=== PATIENT | male | born 1960 | race Caucasian/White ===

== ENCOUNTER → 2017-04-15 11:17 | Outpatient (CLI) | payer BC, MEDICAID, SELFPAY ==
[2017-04-15 16:03] LABS: AST(SGOT) 19 U/L (15-37); Alanine Aminotransfer ALT/SGPT 31 U/L (16-61); Albumin, Serum 3.8 g/dL (3.2-5.0); Alkaline Phosphatase 104 U/L (45-117); Anion Gap 10 (5-15); BUN 9 mg/dL (7-18); BUN/Creat Ratio 10.5 RATIO (10-20); Calcium,Total 9.2 mg/dL (8.5-10.1); Chloride 102 mmol/L (98-107); Cholesterol 169 mg/dL (200); Creatinine, Serum 0.86 mg/dL (0.70-1.30); EST Glomerular Filtration Rate 99 mL/min (>60); Est Glom Filt Rate - Afr Amer 119 mL/min (>60); Globulin 3.7 g/dL (2.2-4.2); Glucose 172 mg/dL (74-106); High Density Lipoprotein 30 mg/dL; Potassium 3.9 mmol/L (3.5-5.1); Protein, Total 7.5 g/dL (6.4-8.2); Sodium Level 136 mmol/L (136-145); Triglycerides 187 mg/dL; Very Low Density Lipoprotein 37 mg/dL (5-40)
[2017-04-15 16:07] LABS: Absolute Lymphocyte Count 2.34 X10^3/ul (0.83-4.51); Absolute Neutrophil Count 4.5 X10^3/uL (2.0-7.7); Basophil# 0.04 X10^3/uL; Basophil% 0.5 % (0-1); Eosinophil# 0.23 X10^3/uL; Hematocrit 40.9 % (40-54); Hemoglobin 13.6 g/dl (13.0-16.5); Lymphocyte # 2.34 X10^3/ul (4.0); Lymphocyte % 30.7 % (19-41); Mean Corp Hgb Conc 33.3 g/gl (32-36); Mean Corpuscular Hgb 31.6 pg (27.0-32.0); Mean Corpuscular Volume 95.1 fL (80-94); Mean Platelet Vol. 10.2 fl (6.2-12.0); Monocyte# 0.46 X10^3/uL; Neutrophil # 4.52 X10^3/uL (2.7-7.7); Neutrophil % 59.4 % (47-70); Platelet Count 223 K/mm3 (150-450); RBC Distribution Width CV 14.7 % (11.6-14.6); White Blood Count 7.6 K/mm3 (4.4-11.0)
[2017-04-15 16:19] LABS: Hemoglobin A1c 8.5 % (4.2-6.3)
[2017-04-15 16:53] LABS: POSITIVE COUNT NO; POSITIVE DIFFERENTIAL NO; POSITIVE MORPHOLOGY NO
[2017-04-15 18:27] LABS: Microalbumin:Creatinine Ratio 37.7 mg/g CRE (<30 mg/g CRE)
== END ==
PROVIDERS: Family Provider Family Medicine; PCP Family Medicine; Visit Provider Family Medicine
DX: E11.40 Type 2 diabetes mellitus with diabetic neuropathy, unspecified (principal); E78.5 Hyperlipidemia, unspecified
CPT/HCPCS: 36415; 80053; 80061; 82043; 82570; 83036; 85025

== ENCOUNTER → 2017-11-26 09:31 | Outpatient (CLI) | payer BC, MEDICAID, SELFPAY ==
[2017-11-26 11:05] LABS: Cholesterol 188 mg/dL (200); High Density Lipoprotein 26 mg/dL; Triglycerides 248 mg/dL; Very Low Density Lipoprotein 50 mg/dL (5-40)
[2017-11-26 12:24] LABS: Microalbumin,Random Urine 10.4 mg/L (NO RANGE EST.); Microalbumin:Creatinine Ratio 11.6 mg/g CRE (<30 mg/g CRE)
[2017-11-26 13:46] LABS: Hemoglobin A1c 7.7 % (4.2-6.3)
== END ==
PROVIDERS: Family Provider Family Medicine; PCP Family Medicine; Visit Provider Family Medicine
DX: E11.40 Type 2 diabetes mellitus with diabetic neuropathy, unspecified (principal); E78.5 Hyperlipidemia, unspecified
CPT/HCPCS: 36415; 80061; 82043; 82570; 83036

== ENCOUNTER → 2018-02-19 08:34 | Outpatient (CLI) | payer BC, MEDICAID, SELFPAY ==
[2018-02-19 12:49] LABS: BUN 11 mg/dL (7-18); Creatinine, Serum 0.94 mg/dL (0.70-1.30); Glucose 172 mg/dL (74-106)
[2018-02-19 12:50] LABS: Anion Gap 12 (5-15); BUN/Creat Ratio 11.7 RATIO (10-20); Calcium,Total 8.6 mg/dL (8.5-10.1); Chloride 100 mmol/L (98-107); Cholesterol 128 mg/dL (200); EST Glomerular Filtration Rate 88 mL/min (>60); Est Glom Filt Rate - Afr Amer 107 mL/min (>60); Hemoglobin A1c 7.9 % (4.2-6.3); High Density Lipoprotein 28 mg/dL; Sodium Level 138 mmol/L (136-145); Triglycerides 325 mg/dL; Very Low Density Lipoprotein 65 mg/dL (5-40)
== END ==
PROVIDERS: Family Provider Family Medicine; PCP Family Medicine; Visit Provider Family Medicine
DX: E11.40 Type 2 diabetes mellitus with diabetic neuropathy, unspecified (principal); E78.5 Hyperlipidemia, unspecified; R80.9 Proteinuria, unspecified; I10 Essential (primary) hypertension
CPT/HCPCS: 36415; 80048; 80061; 83036

== ENCOUNTER → 2018-10-12 | Outpatient (CLI) | payer OTHER, MEDICAID, SELFPAY ==
[2018-10-12 12:54] LABS: Creatinine, Serum 1.09 mg/dL (0.70-1.30); EST Glomerular Filtration Rate 74 mL/min (>60); Est Glom Filt Rate - Afr Amer 90 mL/min (>60)
== END | disposition home or self-care (01) ==
LOC: BFHLAB 08:55
PROVIDERS: Family Provider Family Medicine; PCP Family Medicine; Visit Provider Orthopaedic Surgery Orthopaedic Surgery of the Spine
DX: Z98.890 Other specified postprocedural states (principal)
CPT/HCPCS: 36415; 82565

== ENCOUNTER → 2018-12-01 11:26 | Outpatient (CLI) | payer OTHER, MEDICAID, SELFPAY ==
[2018-12-01 12:35] LABS: Absolute Lymphocyte Count 2.55 X10^3/uL (0.83-4.51); Absolute Neutrophil Count 4.5 X10^3/uL (2.0-7.7); Basophil# 0.04 X10^3/uL; Basophil% 0.5 % (0-1); Eosinophil# 0.19 X10^3/uL; Eosinophils% 2.4 % (0-5); Hematocrit 41.3 % (40-54); Lymphocyte # 2.55 X10^3/ul (4.0); Lymphocyte % 32.7 % (19-41); Mean Corp Hgb Conc 33.9 g/dL (32-36); Mean Corpuscular Hgb 32.2 pg (27.0-32.0); Mean Corpuscular Volume 94.9 fL (80-94); Mean Platelet Vol. 9.8 fl (6.2-12.0); Monocyte# 0.47 X10^3/uL; NRBC Flagged by Analyzer 0 % (0-5); Neutrophil # 4.52 X10^3/uL (2.7-7.7); Platelet Count 207 K/mm3 (150-450); RBC Distribution Width CV 13.6 % (11.6-14.6); RBC Distribution Width SD 47.4 fl (35.1-43.9); Red Blood Count 4.35 M/mm3 (4.6-6.2); White Blood Count 7.8 K/mm3 (4.4-11.0)
[2018-12-01 12:41] LABS: Microalbumin,Random Urine 12.3 mg/L (NO RANGE EST.); Microalbumin:Creatinine Ratio 25.4 mg/g CRE (<30 mg/g CRE)
[2018-12-01 12:55] LABS: Hemoglobin A1c 7.1 % (4.2-6.3)
[2018-12-01 13:00] LABS: ALB/GLOB Ratio 1.1 RATIO (0.9-2.4); AST(SGOT) 22 U/L (15-37); Alanine Aminotransfer ALT/SGPT 27 U/L (16-61); Albumin, Serum 4.1 g/dL (3.2-5.0); Alkaline Phosphatase 87 U/L (45-117); Anion Gap 11 (5-15); BUN 17 mg/dL (7-18); BUN/Creat Ratio 15.6 RATIO (10-20); Calcium,Total 9.6 mg/dL (8.5-10.1); Chloride 103 mmol/L (98-107); Cholesterol 203 mg/dL (200); Creatinine, Serum 1.09 mg/dL (0.70-1.30); EST Glomerular Filtration Rate 74 mL/min (>60); Est Glom Filt Rate - Afr Amer 90 mL/min (>60); Globulin 3.7 g/dL (2.2-4.2); Glucose 152 mg/dL (74-106); High Density Lipoprotein 30 mg/dL; PSA,Total - Annual Screen 0.82 ng/mL (0.00-4.00); Potassium 4.2 mmol/L (3.5-5.1); Protein, Total 7.8 g/dL (6.4-8.2); Sodium Level 138 mmol/L (136-145); Triglycerides 189 mg/dL; Very Low Density Lipoprotein 38 mg/dL (5-40)
== END ==
PROVIDERS: Family Provider Family Medicine; PCP Family Medicine; Visit Provider Family Medicine
DX: E11.40 Type 2 diabetes mellitus with diabetic neuropathy, unspecified (principal); Z12.5 Encounter for screening for malignant neoplasm of prostate
CPT/HCPCS: 36415; 80053; 80061; 82043; 82570; 83036; 84153; 85025; G0103

== ENCOUNTER 2020-05-16 14:43 | Outpatient (RCR) | payer MEDICAID, SELFPAY ==
[2020-05-16] MEDS: COVID-19 VACC, MRNA(PFIZER)/PF 30 MCG/0.3 ML SYRINGE IM (12:53)
[2020-06-06] MEDS: COVID-19 VACC, MRNA(PFIZER)/PF 30 MCG/0.3 ML SYRINGE IM (12:43)
== END 2020-08-08 23:59 ==
LOC: IMMUN 14:43
PROVIDERS: PCP Family Medicine; Visit Provider Family Medicine
DX: Z23 Encounter for immunization (principal)
CPT/HCPCS: 0001A; 0002A; 91300

== ENCOUNTER → 2020-08-24 08:34 | Outpatient (CLI) | payer BC, MEDICAID, SELFPAY ==
--- NOTE | 2020-08-24 08:36 | CT_ITS ---
STUDY: CT CHEST WITHOUT CONTRAST- LOW DOSE SCREENING PROTOCOL REASON FOR EXAM: Male, 59 years old. Current smoker. 40 pack per year history. No current symptoms of lung cancer or pulmonary infection. Shared decision-making with referring PCP documented in patient''s record. RADIATION DOSAGE (If Supplied By Facility): CTDIvol = ( 3.02 ) mGy, DLP = ( 98.55 ) mGycm TECHNIQUE: Low dose screening CT examination performed from the base of the neck to the upper abdomen. Sagittal and coronal reformatted images performed. Sagittal and coronal MIP images provided. The measurements provided are average, rounded measurements per ACR guidelines. COMPARISON: None. FINDINGS: Mild emphysematous changes. No noncalcified nodule or mass. There is no demonstrated pleural abnormality. Normal heart and pericardium. There are calcifications of the coronary arteries. Normal mediastinum. Normal hilar regions. Normal unenhanced pulmonary arteries. Normal aorta arch and descending thoracic aorta. Healed fracture the mid sternum. There is no demonstrated abnormality of the visualized upper abdomen. CT/Low Dose CT Lung Screening IMPRESSION: 1. No significant indeterminate incidental findings requiring additional imaging. 2. Incidental findings include mild emphysema. ASSESSMENT CATEGORY: LungRADS 1 - Negative. Continue annual screening with LDCT in 12 months, per established ACR guidelines. Electronically Signed: Geoff Borges MD at 14:46 EDT Tel , Service support ,
== END ==
PROVIDERS: PCP Family Medicine; Referring Provider Family Medicine; Visit Provider Family Medicine
DX: Z12.2 Encounter for screening for malignant neoplasm of respiratory organs (principal); Z72.0 Tobacco use
CPT/HCPCS: 71271

== ENCOUNTER 2021-02-22 11:00 | Outpatient (RCR) | payer BC, MEDICAID, SELFPAY ==
--- NOTE | 2021-01-16 13:30 | HP.PTEVAL_ITS ---
Patient's Visit Information NATALIE HARRISON is a 60 year old M referred to Physical Therapy by Dr. Moe Ferguson MD with a diagnosis of LUMBAR BACK PAIN WITH RADICULOPATHY,S/P LAMINECTOMY T12 -S1 WITH FUSION. Date of Evaluation: 01/16/21 Physical Therapist: Moe Ramos, PT, Cert MDT, OCS - Visit Plan Frequency: 2x /Week Duration: 4 Weeks Plan: PT INTERVETIONS DLS ,POSTURAL EX'S,LE FLEXABLITY AND STREGTHENING WITH HEP - Subjective This 60 y/o male presents to physical therapy with lumbar radiculopathy . Patient has multiple comorbities to include multiple lumbar surgeries with 11 back surgery's. Most recently ,patient had s/p laminectomy T12-S1 with spinal fusion L1-S1 on Nov 292020 at [facility] . Recommend PT but needs PT before MRI. Location right lumbar to to glut to anterior to foot. Patient has had epidural injections in past. Patient has prior PT after surgery. MEDS: oxycodone. C/O paresthesia/tingling ,right leg . Bowel/bladder- .Coughing/sneezing+ . Patient aggravating factors bending, lifting, sitting, walking and standing. This affects ADLS Alleviating factors rest. Patient condition affects QOL and function. SOCIAL: . VOCATION: - Pain Bilateral Back Pain Intensity (Out of 10): 10 Pain Intensity Range: 10 Right Lower Extremity Pain Intensity (Out of 10): 10 Pain Intensity Range: 10 - Objective POSTURE: mild forward posture. GAIT: reciprocal pattern antalgic gait with decrease stance time RLE. FLEXABILITY: hamstrings mod tight. SYMMYTRIES: align. PALAPTION: tender right SI. MMT: quads/hams 4-/5,hip flexion 4-/5,ankle 4/5. LUMBAR ROM: flexion mod loss, extension mod/severe loss pain , side glides mod - Special Tests L/S Slump test left side: Positive L/S Slump test right side: Positive L/S Left Straight Leg Raise: Negative L/S Right Straight Leg Raise: Negative Lumbar Standing: Flexion - Mechanical Response: No effect Lumbar Standing: Flexion - Symptoms During Testing: Increases Lumbar Standing: Flexion - Symptoms After Testing: No worse Lumbar Standing: Extension - Mechanical Response: No effect Lumbar Standing: Extension - Symptoms During Testing: Increases Lumbar Standing: Extension - Symptoms After Testing: Worse Lumbar Standing: Right Side Glides - Mechanical Response: No effect Lumbar Standing: Right Side [place] - Symptoms During Testing: Increases Lumbar Standing: Right Side [place] - Symptoms After Testing: Worse Lumbar Standing: Left Side [place] - Mechanical Response: No effect Lumbar Standing: Left Side [place] - Symptoms During Testing: No effect Lumbar Standing: Left Side [place] - Symptoms After Testing: No effect - Balance/Special Test Scores Oswestry Low Back Score: 35 - Goals Goal 1:: Patient to be I with HEP Goal Time Frame: 4-6 Weeks Goal 2:: Patient to improve posture for ADLS' Goal Time Frame: 4-6 Weeks Goal 3:: Patient to demonstrate 50% improvement with decrease back and leg pain Goal Time Frame: 4-6 Weeks Goal 4:: Patient to improve lumbar ROM for function of recovery Goal Time Frame: 4-6 Weeks Goal 5:: Patient to improve back owestry score by 5 points Goal Time Frame: 4-6 Weeks - Rehabilitation Potential Physical Therapy Diagnosis: This patient has multiple comorbities along 11 surgery most recent lumbar fusion L1-S1 with pain ,poor lumbar ROM ,weakness right leg thus will benefit from skilled PT Rehabilitation Potential: Good - Anticipated Interventions Patient/Client Instruction: Educate patient on: Condition, Plan of Care For the Purpose of:: To decrease pain, To increase ROM, To improve ability to perform ADL's, To improve ability of physical actions for home/community/work/leisure, To improve health of tissue, To decrease soft tissue restriction, To increase flexibility/ROM, To reduce risk of recurrence Therapeutic Exercise to Include: Strength training, Balance training, Body mechanics, Postural training, Gait and locomotor training, Dynamic Lumbar Stabilization Comment: BLE For the Purpose of:: To increase ROM, To improve muscle performance and motor function, To increase tolerance to activity/condition/position, To improve ability of physical actions for home/community/work/leisure, To improve health of tissue, To decrease soft tissue restriction, To increase flexibility/ROM, To improve balance, To reduce risk of recurrence Thank you for the opportunity to evaluate your patient. For Medicare and Medicare HMO plans, please review the plan of care and approve it. It will need to be FAXED BACK to us at [phone] for Medicare purposes. For Medicare only, by signing this I certify the plan of care. Please let me know if there are questions or concerns regarding this plan of care. Physician Signature: Date:__
--- NOTE | 2021-04-27 07:56 | HP.PT.NRP ---
NATALIE HARRISON was seen in my office for initial evaluation on 01/16/21. The following Plan of Care was established for this patient: Initial Frequency: 2x /Week Initial Duration: 4 Weeks Patient/Client Instruction: Educate patient on: Condition, Plan of Care For the Purpose of:: To decrease pain, To increase ROM, To improve ability to perform ADL's, To improve ability of physical actions for home/community/work/leisure, To improve health of tissue, To decrease soft tissue restriction, To increase flexibility/ROM, To reduce risk of recurrence Therapeutic Exercise to Include: Strength training, Balance training, Body mechanics, Postural training, Gait and locomotor training, Dynamic Lumbar Stabilization For the Purpose of:: To increase ROM, To improve muscle performance and motor function, To increase tolerance to activity/condition/position, To improve ability of physical actions for home/community/work/leisure, To improve health of tissue, To decrease soft tissue restriction, To increase flexibility/ROM, To improve balance, To reduce risk of recurrence This patient was last seen in our office . Pertinent comments regarding their Physical therapy will appear below: Patient was seen for PT for lumbar laminectomy with lumbar radiculopathy focus on postural ex's ,DLS . Patient is d/c to RTD At this point I will be discontinuing this patient from physical therapy. I would be happy to see this patient again in the future if found appropriate by the physician. Thank you! Moe Ramos, PT, Cert MDT, OCS Balance/Gait/Functional tests - Balance/Special Test Scores Oswestry Low Back Score: 35
== END 2021-02-22 19:00 | disposition home or self-care (01) ==
LOC: PT 11:00
PROVIDERS: PCP Family Medicine; Referring Provider Orthopaedic Surgery Orthopaedic Surgery of the Spine; Visit Provider Orthopaedic Surgery Orthopaedic Surgery of the Spine
DX: M54.50 Low back pain, unspecified (principal); M54.16 Radiculopathy, lumbar region; Z98.1 Arthrodesis status
CPT/HCPCS: 97110; 97162

== ENCOUNTER 2021-09-25 16:58 | Outpatient (CLI) | payer OTHER, MEDICAID, SELFPAY | END 2021-09-25 23:59 | disposition home or self-care (01) | PROVIDERS: PCP Family Medicine; Visit Provider Family Medicine | DX: U07.1 COVID-19 (principal) | CPT/HCPCS: 87635; U0003; U0005 ==

== ENCOUNTER → 2022-01-07 | Outpatient (CLI) | payer OTHER, MEDICAID, SELFPAY ==
[2022-01-07 12:23] LABS: AST(SGOT) 13 U/L (15-37); Alanine Aminotransfer ALT/SGPT 22 U/L (16-61); Albumin, Serum 3.6 g/dL (3.2-5.0); Alkaline Phosphatase 88 U/L (45-117); Anion Gap 10 (5-15); BUN 11 mg/dL (7-18); BUN/Creat Ratio 9.5 RATIO (10-20); Calcium,Total 9.3 mg/dL (8.5-10.1); Chloride 102 mmol/L (98-107); Cholesterol 179 mg/dL (200); Creatinine, Serum 1.16 mg/dL (0.70-1.30); EST Glomerular Filtration Rate 69 mL/min (>60); Est Glom Filt Rate - Afr Amer 83 mL/min (>60); Globulin 3.6 g/dL (2.2-4.2); Glucose 255 mg/dL (74-106); High Density Lipoprotein 30 mg/dL; Potassium 4.5 mmol/L (3.5-5.1); Protein, Total 7.2 g/dL (6.4-8.2); Sodium Level 135 mmol/L (136-145); Triglycerides 208 mg/dL; Very Low Density Lipoprotein 42 mg/dL (5-40)
[2022-01-07 12:40] LABS: Microalbumin,Random Urine 35.7 mg/L (NO RANGE EST.); Microalbumin:Creatinine Ratio 93.9 mg/g CRE (<30 mg/g CRE)
== END | disposition home or self-care (01) ==
LOC: BFHLAB 09:30
PROVIDERS: PCP Family Medicine; Visit Provider Family Medicine
DX: E11.40 Type 2 diabetes mellitus with diabetic neuropathy, unspecified (principal)
CPT/HCPCS: 36415; 80053; 80061; 82043; 82570

== ENCOUNTER → 2022-07-08 | Outpatient (CLI) | payer OTHER, MEDICAID, SELFPAY ==
[2022-07-08 18:02] LABS: Absolute Lymphocyte Count 2.13 X10^3/uL (0.83-4.51); Absolute Neutrophil Count 5.8 X10^3/uL (2.0-7.7); Basophil# 0.05 X10^3/uL; Basophil% 0.6 % (0-1); Eosinophil# 0.13 X10^3/uL; Eosinophils% 1.5 % (0-5); Hematocrit 43.4 % (40-54); Hemoglobin 14.4 g/dL (13.0-16.5); Lymphocyte # 2.13 X10^3/ul (0.83-4.51); Lymphocyte % 24.4 % (19-41); Mean Corp Hgb Conc 33.2 g/dL (32-36); Mean Corpuscular Hgb 31.4 pg (27.0-32.0); Mean Corpuscular Volume 94.6 fL (80-94); Monocyte# 0.55 X10^3/uL; Monocyte% 6.3 % (0-10); NRBC Flagged by Analyzer 0 % (0-5); Neutrophil # 5.82 X10^3/uL (2.7-7.7); Neutrophil % 66.6 % (47-70); Platelet Count 263 K/mm3 (150-450); RBC Distribution Width SD 48.4 fl (35.1-43.9); Red Blood Count 4.59 M/mm3 (4.6-6.2); White Blood Count 8.7 K/mm3 (4.4-11.0)
[2022-07-08 18:23] LABS: Vitamin B12 174 pg/mL (211-911); Vitamin D,25 Hydroxy 19.6 ng/mL
[2022-07-08 19:00] LABS: AST(SGOT) 20 U/L (15-37); Alanine Aminotransfer ALT/SGPT 27 U/L (16-61); Albumin, Serum 3.9 g/dL (3.2-5.0); Alkaline Phosphatase 92 U/L (45-117); Anion Gap 11 (5-15); BUN 17 mg/dL (7-18); BUN/Creat Ratio 16.3 RATIO (10-20); Calcium,Total 9.7 mg/dL (8.5-10.1); Chloride 104 mmol/L (98-107); Creatinine, Serum 1.04 mg/dL (0.70-1.30); EST Glomerular Filtration Rate 78 mL/min (>60); Est Glom Filt Rate - Afr Amer 94 mL/min (>60); Glucose 186 mg/dL (74-106); Potassium 4.2 mmol/L (3.5-5.1); Protein, Total 7.9 g/dL (6.4-8.2); Sodium Level 138 mmol/L (136-145); Thyroid Stim Hormone (TSH) 1.03 uIU/mL (0.358-3.74)
== END | disposition home or self-care (01) ==
LOC: BFHLAB 14:53
PROVIDERS: PCP Family Medicine; Referring Provider Family Medicine; Visit Provider Family Medicine
DX: R53.83 Other fatigue (principal); I10 Essential (primary) hypertension
CPT/HCPCS: 36415; 80053; 82306; 82607; 84443; 85025

== ENCOUNTER → 2022-10-07 | Outpatient (CLI) | payer OTHER, MEDICAID, SELFPAY ==
[2022-10-07 12:50] LABS: Vitamin B12 207 pg/mL (211-911); Vitamin D,25 Hydroxy 29.7 ng/mL
[2022-10-07 13:01] LABS: Cholesterol 136 mg/dL (200); High Density Lipoprotein 34 mg/dL; PSA,Total - Annual Screen 1.08 ng/mL (0.00-4.00); Triglycerides 126 mg/dL; Very Low Density Lipoprotein 25 mg/dL (5-40)
== END | disposition home or self-care (01) ==
LOC: BFHLAB 09:52
PROVIDERS: PCP Family Medicine; Referring Provider Family Medicine; Visit Provider Family Medicine
DX: E78.5 Hyperlipidemia, unspecified (principal); E53.8 Deficiency of other specified B group vitamins; E55.9 Vitamin D deficiency, unspecified; Z12.5 Encounter for screening for malignant neoplasm of prostate
CPT/HCPCS: 36415; 80061; 82306; 82607; 84153; G0103

== ENCOUNTER → 2023-03-19 | Outpatient (CLI) | payer OTHER, MEDICAID, SELFPAY ==
--- OUTSIDE RECORDS SUMMARY | 2023-03-19 12:41 | XMS RPT_ITS | CCD ---
Demographics Address [address] [place] [address] Preferred Language en Marital Status Alevism Affiliation Unknown Race White Ethnic Group Not or Lati no Author Name Unknown Address [address] [place] [address] Organization [facility] Care Team Providers Care Partner Cco Name Role Phone Wayne Poe Unavailable Unavailable PROVIDER, UNKNOWN Unavailable Unavailable No, PCP Unavailable Unavailable Eligio Glez Primary Care Provider ELIGIO GLEZ Primary Care Unavailable JERRY FERGUSON Attending Unavailable JERRY FERGUSON Admitting Unavailable Eligio Glez DO Primary Care Provider Eligio Glez Primary Care Provider AMARIS REYES, DR DEL VALLE A Primary Care Physician Eligio Glez DO Primary Care Provider KIMBERLY DOWNS Attending Coty vailable AMARIS DO, DR DEL VALLE A Primary Care Unavailab zoltan HOFF, KIMBERLY Huston Attending Coty vailable AMARISCATRACHITA REYES, DR DEL VALLE A Primary Care Unavailab KIMBERLY Ramey Attending Coty vailable AMARIS DO, DR DEL VALLE A Primary Care Unavailab zoltan HOFF, KIMBERLY Huston Attending Coty vailable AMARIS , DR DEL VALLE A Primary Care Unavailab KIMBERLY Ramey Attending Coty vailable AMARIS DO, DR DEL VALLE A Primary Care Unavailab zoltan JAMES MD., EVELYN [place] Attending Unavailable AMARIS DO, DR DEL VALLE A Primary Care Unavailab zoltan JAMES MD., EEVLYN [place] Attending Unavailable AMARISCATRACHITA REYES, DR DEL VALLE A Primary Care Unavailab zoltan HOFF, KIMBERLY Huston Attending Coty vailable AMARIS DO, DR ELIGIO A Primary Care Unavailab zoltan MANE PIECE HAND-FLARE MAN, KIMBERLY Huston Attending Coty vailable AMARIS REEYS, DR DEL VALLE A Primary Care Unavailab zoltan Glez, Eligio A Primary Care Provider Amaris, Eligio A Primary Care Provider FAREED HAGER Referring Unavailable HARTJESUS SANCHEZ Attending Unavailable AMARIS, ELIGIO Primary Care Unavailable KARLA ATKINS Attending Unavailable AMARIS, ELIGIO Primary Care Unavailable HARTZJENAE, JESUS Admitting Unavailable JEMMA, APURVA Consulting Unavailable FIDEL, JESUS Attending Unavailable AMARIS, ELIGIO Primary Care Unavailable FAREED HAGER Attending Unavailable FAREED HAGER Referring Unavailable AMARIS, ELIGIO Primary Care Unavailable AMARIS, ELIGIO Primary Care Unavailable AMARIS, ELIGIO Attending Unavailable AMARIS, ELIGIO Referring Unavailable AMARIS, ELIGIO Primary Care Unavailable AMARIS, ELIGIO Attending Unavailable AMARIS, ELIGIO Referring Unavailable AMARIS, ELIGIO Primary Care Unavailable HARTZJENAE, JESUS Admitting Unavailable HARTZFELD, JESUS Attending Unavailable Allergies Allergy Classification Reported Allergen(s) Allergy Type Date of Onset Reaction(s) Facility (19 sources) Acetaminophen / HYDROcodone Drug Allergy 05-27-19 07 Other (See Comments), Intolerance, Other [place] (19 sources) atorvastatin Drug Allergy 10-27-19 05 Other (See Comments), Intolerance, Other [place] (5 sources) Latex Propensity to adverse reactions to drug 07-10-19 13 Rash [place] (19 sources) Naproxen Drug Allergy 01-31-20 09 Intolerance [place] (20 sources) Pravastatin; Translations: [pravastatin] Drug Allergy 06-30-19 11 Other (See Comments), Mental Status Change, Nausea (finding), Nausea Only [place] (5 sources) Sulindac Drug Allergy 03-02-20 08 Intolerance [place] (5 sources) Acetaminophen / HYDROcodone; Translations: [acetaminophen-hy drocodone] Drug Allergy Headache (finding) [facility] (5 sources) atorvastatin; Translations: [atorvastatin] Drug Allergy Pain in bilateral legs (finding) [facility] (5 sources) dulaglutide; Translations: [dulaglutide] Drug Allergy Nausea (finding) [facility] (19 sources) pioglitazone; Translations: [pioglitazone] Drug Allergy 11-14-19 Constipation (disorder), Edema (finding), Swelling [facility] (19 sources) SITagliptin; Translations: [sitagliptin] Drug Allergy 11-14-19 Chest pain (finding) [facility] (18 sources) Morphine; Translations: [morphine] Drug Allergy 11-14-19 Headache (finding), Headache [facility] (14 sources) dulaglutide Drug Allergy 11-14-19 Nausea Only [facility] [employer] (14 sources) Latex Propensity to adverse reactions 07-10-19 Rash [facility] (14 sources) Sulindac Propensity to adverse reactions 03-02-20 08 Other [facility] Medications Current Medications Medication Drug Class(es) Dates Sig (Normalized) Sig (Original) acetaminophen 325 mg / oxyCODONE hydrochloride 5 mg oral tablet (13 sources) Opioid Agonist Start: 11-30-2022 End: 12-13-2022 take 1 tablet by mouth every six hours as needed for pain oxyCODONE-acetami nophen (Percocet) 5-325 MG tablet Indications: Chronic pain disorder Take 1 tablet by mouth every 6 hours as needed for moderate pain (4-6) for up to 7 days. 28 tablet 0 12/06/2022 12/13/2022 Active Completed/Discontinued Medications Medication Drug Class(es) Dates Sig (Normalized) Sig (Original) acetaminophen 500 mg oral tablet (1 source) Start: 11-29-2022 End: 11-29-2022 acetaminophen (Tylenol) tablet 1,000 mg acetaminophen 325 mg / butalbital 50 mg / caffeine 40 mg oral tablet (2 sources) Barbiturate, Central Nervous System Stimulant, Methylxanthine Start: 07-13-2015 take 1 tablet by mouth every twelve hours as needed acetaminophen 325 mg-caffeine 40 mg-butalbital 50 mg (FIORICET) per tablet Take 1 tablet by mouth twice daily as needed for Pain (headache). 60 tablet 2 07/13/2015 Active Problems Active Problems Problem Classification Problem Date Documented Date Episodic/Chronic Asthma (19 sources) Asthma; Translations: [Unspecified asthma, uncomplicated] Onset: 03-03-2016 10-01-2021 Chronic Chronic obstructive pulmonary disease and bronchiectasis (20 sources) Mild chronic obstructive pulmonary disease; Translations: [Chronic obstructive pulmonary disease, unspecified] Onset: 12-15-2009 12-15-2009 Chronic Complications of surgical procedures or medical care (14 sources) Complication of surgical procedure; Translations: [Unspecified complication of procedure, initial encounter] Onset: 11-13-2022 11-13-2022 Episodic Diabetes mellitus with complications (20 sources) Type 2 diabetes mellitus; Translations: [Type 2 diabetes mellitus with diabetic neuropathy, unspecified] Onset: 01-01-2016 01-01-2016 Chronic Disorders of lipid metabolism (20 sources) Mixed hyperlipidemia; Translations: [Mixed hyperlipidemia] Onset: 12-29-2014 12-29-2014 Chronic Esophageal disorders (20 sources) Gastroesophageal reflux disease; Translations: [Gastro-esophageal reflux disease without esophagitis] Onset: 03-03-2016 08-28-2005 Chronic Essential hypertension (19 sources) Hypertensive disorder; Translations: [Essential (primary) hypertension] Onset: 03-03-2017 10-01-2021 Chronic Genitourinary symptoms and ill-defined conditions (19 sources) Microalbuminuria; Translations: [Proteinuria, unspecified] Onset: 03-03-2017 10-01-2021 Episodic Gout and other crystal arthropathies (19 sources) Gout; Translations: [Gout, unspecified] Onset: 03-03-2020 10-01-2021 Chronic Headache; including migraine (18 sources) Migraine without aura, not refractory ; Translations: [Chronic migraine without aura, not intractable, without status migrainosus] Onset: 07-30-2015 07-30-2015 Chronic Other acquired deformities (1 source) Other forms of scoliosis, thoracolumbar region; Translations: [OTH FORMS SCOLIOSIS THORACOLUMBAR] Onset: 04-10-2021 Chronic Other acquired deformities (1 source) Spondylolisthesis, lumbar region; Translations: [SPONDYLOLISTHESIS LUMBAR REGION] Onset: 04-10-2021 Episodic Other connective tissue disease (1 source) Arthrodesis status; Translations: [ARTHRODESIS STATUS] Onset: 04-10-2021 Episodic Other ear and sense organ disorders (5 sources) Hearing loss of left ear Onset: 03-03-2016 10-01-2021 Chronic Other nervous system disorders (20 sources) Chronic pain syndrome; Translations: [Chronic pain syndrome] Onset: 11-29-2022 11-13-2022 Chronic Other nervous system disorders (1 source) Chronic pain syndrome; Translations: [Chronic pain syndrome] Onset: 11-29-2022 Chronic Other non-traumatic joint disorders (1 source) Osteophyte, vertebrae; Translations: [OSTEOPHYTE VERTEBRAE] Onset: 04-10-2021 Chronic Other screening for suspected conditions (not mental disorders or infectious disease) (5 sources) Patient encounter status; Translations: [Encounter for screening for malignant neoplasm of respiratory organs] Onset: 11-21-2022 11-21-2022 Episodic Residual codes; unclassified (20 sources) Obstructive sleep apnea syndrome; Translations: [Obstructive sleep apnea (adult) (pediatric)] Onset: 03-03-2016 02-26-2021 Chronic Residual codes; unclassified (4 sources) Tobacco use and exposure - finding; Translations: [Tobacco use] Onset: 11-21-2022 11-21-2022 Episodic Residual codes; unclassified (1 source) Tobacco use; Translations: [Tobacco use] Onset: 11-21-2022 Episodic Spondylosis; intervertebral disc disorders; other back problems (20 sources) Other intervertebral disc displacement, thoracolumbar region; Translations: [Spondylosis without myelopathy or radiculopathy, lumbar region] Onset: 03-03-2018 11-06-2021 Chronic Spondylosis; intervertebral disc disorders; other back problems (20 sources) Radiculopathy, lumbar region; Translations: [Spinal stenosis, thoracolumbar region] Onset: 12-10-2015 05-06-2016 Episodic Unclassified (2 sources) Post-op; Translations: [Post-op] Onset: 12-11-2022 Unclassified (2 sources) New Patient; Translations: [New Patient] Onset: 11-13-2022 Past or Other Problems Problem Classification Problem Date Documented Date Episodic/Chronic Headache; including migraine (5 sources) Chronic headache disorder Onset: 03-03-2019 10-01-2021 Episodic Mycoses (5 sources) Onychomycosis Onset: 03-03-2017 10-01-2021 Episodic Other inflammatory condition of skin (7 sources) Intertrigo; Translations: [Erythema intertrigo] Onset: 07-30-2015 07-30-2015 Episodic Other nervous system disorders (5 sources) Post-surgery back pain Onset: 03-03-2018 10-01-2021 Episodic Other non-traumatic joint disorders (3 sources) Pain in right hip joint; Translations: [Pain in right hip] Onset: 07-30-2022 Episodic Other non-traumatic joint disorders (1 source) Pain in right hip; Translations: [Pain in right hip] Onset: 07-30-2022 Episodic Other skin disorders (5 sources) Folliculitis Onset: 03-03-2017 10-01-2021 Episodic Residual codes; unclassified (20 sources) Insomnia; Translations: [Insomnia, unspecified] Onset: 03-03-2016 05-27-2016 Episodic Residual codes; unclassified (5 sources) Chronic back pain Onset: 03-03-2018 10-01-2021 Episodic Viral infection (2 sources) Verruca vulgaris; Translations: [Viral wart, unspecified] Onset: 05-27-2008 05-27-2008 Episodic Results Test Name Value Interpretation Reference Range Facil ity Vital Signs Date Time Vital Sign Value Performing Clinician Faci lity 12-11-2022 10:40-0400 Body height 172.7 cm Karla Atkins [employer] Work Phone: [employer] 12-11-2022 10:40-0400 Body mass index (BMI) [Ratio] 26 kg/m2 Karla Atkins APRN [employer] Work Phone: [employer] 12-11-2022 10:40-0400 Body temperature 97.81 [degF] Karla Atkins PIECE HAND [employer] Work Phone: [employer] 12-11-2022 10:40-0400 Body weight 77.56 kg Karla Atkins APRN [employer] Work Phone: [employer] 12-11-2022 10:40-0400 Diastolic blood pressure 57 mm[Hg] Karla Atkins PIECE HAND [employer] Work Phone: [employer] 12-11-2022 10:40-0400 Heart rate 60 /min Karla Atkins [employer] HAND [employer] Work Phone: [employer] 12-11-2022 10:40-0400 Systolic blood pressure 118 mm[Hg] Karla Krausvianney PIECE HAND - FLARE MAN Work Phone: [facility] [employer] 11-30-2022 07:57-0400 Body temperature 98.2 [degF] Jesus Felder MD Work Phone: [facility] [employer] Encounters Encounter Date Encounter Type Care Provider Facility Start: 12-11-2022 End: 12-11-2022 ambulatory KARLA ATKINS [facility] Start: 12-11-2022 End: 12-11-2022 Postop follow up visit related to original px Karla Arguetabrandin [employer] Work Phone: [facility] Procedures Date Procedure Procedure Detail Performing Clinician Start: 11-30-2022 Glucose quantitative blood xcpt reagent strip Jesus Felder MD Work Phone: Start: 11-30-2022 Basic metabolic pane l calcium total Karla Huston Elizabeth [employer] Work Phone: Start: 11-29-2022 Radiologic exam abdo men 1 view Cleopatra Baig [employer] - [employer] Work Phone: Start: 11-29-2022 Glucose quantitative blood xcpt reagent strip Jesus Felder MD Work Phone: Start: 11-29-2022 FL GUIDANCE OR USE O NLY - NON-RESULTABLE Jesus Felder MD Work Phone: Start: 11-29-2022 Glucose quantitative blood xcpt reagent strip Jesus Felder MD Work Phone: Start: 06-01-2021 Revision decompressi on of thoracic spine EVELYN JAMES MD Plan of Treatment Date Care Activity Detail Author Start: 05-16-2025 PROSTATE CANCER SCREENING DISCUSSION PROSTATE CANCER SCREENING DISCUSSION [facility] Start: 03-31-2025 DTaP/Tdap/Td vaccine (3 - Td or Tdap) DTaP/Tdap/Td vaccine (3 - Td or Tdap) [facility] Start: 03-31-2025 DTaP/Tdap/Td vaccine (3 - Td) DTaP/Tdap/Td vaccine (3 - Td) [place] Start: 03-31-2025 DTaP/Tdap/Td Vaccines (3 - Td or Tdap) DTaP/Tdap/Td Vaccines (3 - Td or Tdap) [facility] Start: 03-31-2025 Urine microalbumin profile DTAP,TDAP,TD (3 - Td or Tdap) [facility] Start: 11-26-2023 Hemoglobin A1c measurement Diabetes: Hemoglobin A1C [facility] Start: 11-22-2023 Screening for malignant neoplasm of lung Lung Cancer Screening [facility] Start: 2022 RSV Immunization aged 60 or older (1 - 1-dose 60+ series) RSV Immunization aged 60 or older (1 - 1-dose 60+ series) [facility] Start: 12-11-2022 End: 12-11-2022 Patient encounter procedure 12/11/2022 10:30 AM EDT Office Visit [address] [id number] Karla Atkins, PIECE HAND - FLARE MAN [address] [place] [address] [facility] Start: 11-29-2022 End: 11-29-2022 Admission to same day surgery center 11/29/2022 10:30 AM EDT - 11/29/2022 12:30 PM EDT Surgery [facility] [address] [facility] [place] [address] Jesus Felder MD [address] [place] [address] SPINAL CORD STIMULATOR PLACEMENT [34022 (CPT )] [facility] Immunizations Immunization Date Immunization Notes Care Provider Fa cility 01-07-2022 influenza, injectabl e, quadrivalent, preservative free Jesus Felder MD Work Phone: [facility] 01-07-2022 influenza virus vacc ine, unspecified formulation Jesus Felder MD Work Phone: [facility] 06-06-2020 Pfizer SARS-CoV-2 Vaccination Fareed Hager MD Work Phone: [facility] 05-16-2020 Pfizer SARS-CoV-2 Vaccination Fareed Hager MD Work Phone: [facility] 11-08-2016 influenza, injectabl e, quadrivalent, contains preservative Fareed Lindsey Jr., MD Work Phone: [facility] 01-01-2016 influenza, injectabl e, quadrivalent, contains preservative Fareed Lindsey Jr., MD Work Phone: [facility] 03-31-2015 tetanus and diphther ia toxoids, adsorbed, preservative free, for adult use (5 Lf of tetanus toxoid and 2 Lf of diphtheria toxoid) Fareed Lindsey Jr., MD Work Phone: [facility] 12-29-2014 influenza, injectabl e, quadrivalent, contains preservative Fareed Lindsey Jr., MD Work Phone: [facility] 12-29-2014 influenza, injectabl e, quadrivalent, preservative free Jesus Felder MD Work Phone: [facility] 12-21-2013 influenza, seasonal, injectable Fareed Lindsey Jr., MD Work Phone: [facility] 04-05-2013 influenza virus vacc ine, unspecified formulation Fareed Lindsey Jr., MD Work Phone: [facility] 01-03-2012 influenza virus vacc ine, unspecified formulation Fareed Lindsey Jr., MD Work Phone: [facility] 01-10-2011 influenza virus vacc ine, unspecified formulation Fareed Lindsey Jr., MD Work Phone: [facility] 12-14-2009 influenza virus vacc ine, unspecified formulation Fareed Lindsey Jr., MD Work Phone: [facility] 12-01-2008 influenza virus vacc ine, unspecified formulation Fareed Lindsey Jr., MD Work Phone: [facility] 03-02-2008 influenza virus vacc ine, unspecified formulation Fareed Lindsey Jr., MD Work Phone: [facility] Work Phone: 01-26-2007 influenza virus vacc ine, unspecified formulation Fareed Lindsey Jr., MD Work Phone: [facility] Work Phone: 04-06-2005 tetanus toxoid, redu gabriel diphtheria toxoid, and acellular pertussis vaccine, adsorbed Fareed Lindsey Jr., MD Work Phone: [facility] Work Phone: 01-21-2005 influenza virus vacc ine, unspecified formulation Fareed Lindsey Jr., MD Work Phone: [facility] 01-22-1999 pneumococcal polysaccharide vaccine, 23 valent Fareed Lindsey Jr., MD Work Phone: [facility] Work Phone: Payers Date Payer Category Payer Unknown 2021 Unknown MMO MMO [employer] [id number] 2021-Present [phone] [address] [place] [address] PPO [id number] 2018 Medicaid [employer] [employer]ICA[employer] [id number] 2018-Present [phone] [address] [place] [address] Medicaid [id number] 2018 Medicaid [id number] 2018 Medicare [employer] MEDIC[employer] MEDICARE [id number] 2018-Present [address] [place] [address] Medicare HMO [id number] 2018 Unknown [facility] xxxxxxxxxxxx 2018-Present [phone] [address] [place] [address] xxxxxxxxxxxx [id number] 2018 Unknown [facility] xxxxxxxxxxx 2018-Present [phone] [address] [place] [address] xxxxxxxxxxx [id number] 1960 Unknown [id number] 1960 Unknown [id number] 1960 Unknown [id number] 1960 Unknown [id number] 1960 Unknown [id number] 1960 Unknown [id number] 1960 Unknown [id number] 1960 Unknown [id number] 1960 Unknown [id number] 1960 Unknown [id number] 1957 Medicaid [id number] 1957 Unknown [id number] Social History Date Type Detail Facility Start: 09-24-2017 End: 11-25-2022 Tobacco smoking status NHIS Current every day smoker [facility] History of tobacco use Cigarette Smoker [place] Start: 09-24-2017 End: 11-29-2022 Cigarettes smoked current (pack per day) - Reported [facility] Start: 09-24-2017 End: 12-11-2022 Alcohol intake Current drinker of alcohol (finding) [place] Start: 09-24-2017 Alcohol Comment biannually Beatris Fuller [place], [place] Start: 1960 Sex Assigned At Not on file [place], [place] Start: 12-29-2014 End: 11-25-2022 Tobacco use and exposure Smokeless tobacco non-user [facility] Start: 03-14-2021 Alcohol intake Current non-dr countersinker of alcohol (finding) [facility] Start: 11-08-2016 Tobacco Comment 1 pack per week [facility] Start: 10-16-2021 Tobacco smoking status Heavy t obacco smoker (finding) [facility] Sex Assigned At Sex [facility] Start: 07-20-2022 End: 11-25-2022 Exposure to SARS-CoV-2 (event) Not sure [facility] Start: 11-13-2022 End: 11-29-2022 Tobacco use panel [facility] Within the last year , have you been afraid of your partner or ex-partner? No [facility] How often to you hav e a drink containing alcohol? Never [facility] How many standard drinks containing alcohol do you have on a typical day? Patient does not drink [facility] Start: 11-25-2022 Alcohol Comment rare [facility] Medical Equipment Procedure Code Equipment Code Equipment Origin al Text Equipment Identifier Dates Start: 09-13-2014 Clinical Notes 12-29-2014 to 12-11-2022 Karla Atkins APRN - FLARE MAN - 12/11/2022 10:30 AM EDTTelephone Encounter - Jayda Singh MA - 12/06/2022 3:36 PM EDTTelephone Encounter - Jayda Singh MA - 12/06/2022 3:36 PM EDT Note Date & Type Note Facility 12-11-2022 History of Present illness Narrative NEUROSURGERY and SPINE POST-OP NOTE Patient Name: Otto Harrison Patient : 1960 PCP: ELIGIO GLEZ History of Present Ilness: Patient is post-op final cord stimulator placement performed on 11/29/2022. Mr. Harrison returns today for his postoperative evaluation. He is recovering in an expected manner. There is no stimulator customer support representative present today at this visit. His incisions are healing nicely, he has no new complaints or concerns today. Past Medical History: Past Medical History: Diagnosis Date Asthma Chronic back pain COPD (chronic obstructive pulmonary disease) (HCC) Diabetes mellitus (HCC) Diabetic neuropathy (HCC) GERD (gastroesophageal reflux disease) Gout Hyperlipidemia Hypertension Migraines Neuropathy Osteoarthritis Pulmonary emphysema (HCC) Past Surgical History: Past Surgical History: Procedure Laterality Date CARPAL TUNNEL RELEASE Bilateral LUMBAR FUSION x11, multiple back surgeries OTHER SURGICAL HISTORY 09/24/2017 myelogram SPINAL CORD STIMULATOR IMPLANT WRIST SURGERY Left Home Medications: Prior to Admission medications Medication Sig Start Date End Date Taking? Authorizing Provider albuterol 108 (90 Base) MCG/ACT inhaler every 4 hours as needed. 11/01/22 Historical Provider, allopurinol (Zyloprim) 100 MG tablet Take 200 mg by mouth Daily as needed. 01/27/22 Historical Provider, atenolol (Tenormin) 50 MG tablet Take 50 mg by mouth 2 times daily. 10/21/22 Historical Provider, famotidine (Pepcid) 40 MG tablet Take 40 mg by mouth Daily as needed. 10/29/22 Historical Provider, Flovent HFA 110 MCG/ACT inhaler Inhale 2 puffs Nightly. 09/12/22 Historical Provider, flurbiprofen (Ansaid) 100 MG tablet Take 100 mg by mouth 2 times daily as needed. 10/07/22 Historical Provider, gabapentin (Neurontin) 400 MG capsule 4 times daily. Historical Provider, gemfibrozil (Lopid) 600 MG tablet Take 600 mg by mouth 2 times daily. 10/21/22 Historical Provider, glimepiride (Amaryl) 4 MG tablet Take 4 mg by mouth 2 times daily. 09/02/22 Historical Provider, Lananne-marie SoloStar 100 UNIT/ML pen inject 10 units subcutaneously once daily 11/05/22 Historical Provider, losartan (Cozaar) 100 MG tablet Take 100 mg by mouth daily. 09/28/22 Historical Provider, metFORMIN (Glucophage) 1000 MG tablet Take 1,000 mg by mouth 2 times daily. 09/28/22 Historical Provider, montelukast (Singulair) 10 MG tablet Take 10 mg by mouth daily. 11/07/22 Historical Provider, oxyCODONE (Roxicodone) 5 MG immediate release tablet Take 1 tablet (5 mg) by mouth every 6 hours as needed for moderate pain (4-6) or severe pain (7-10) for up to 7 days. 12/06/22 12/13/22 ROGERIO Sanchez CNP oxyCODONE-acetaminophen (Percocet) 5-325 MG tablet Take 1 tablet by mouth every 6 hours as needed for moderate pain (4-6) for up to 7 days. 12/06/22 12/13/22 ROGERIO Sanchez CNP tamsulosin (Flomax) 0.4 MG 24 hr capsule Take 0.8 mg by mouth every evening. 10/17/22 Historical Provider, terbinafine (LamISIL) 250 MG tablet Take 250 mg by mouth daily. 09/10/22 Historical Provider, tiZANidine (Zanaflex) 4 MG tablet Take 1 tablet (4 mg) by mouth every 8 hours as needed for muscle spasms for up to 7 days. 12/06/22 12/13/22 ROGERIO Sanchez CNP traMADol (Ultram) 50 MG tablet Take 1 tablet (50 mg) by mouth every 6 hours as needed for severe pain (7-10) (pain) for up to 5 days. 12/02/22 12/07/22 ROGERIO Sanchez CNP VITAMIN D PO Take by mouth Nightly. Historical Provider, oxyCODONKorina-acetaminophen (Percocet) 5-325 MG tablet Take 1 tablet by mouth every 6 hours as needed for moderate pain (4-6) for up to 7 days. 11/30/22 12/06/22 ROGERIO Ramires CNP tiZANidine (Zanaflex) 4 MG tablet Take 1 tablet (4 mg) by mouth every 8 hours as needed for muscle spasms for up to 7 days. 11/30/22 12/06/22 ROGERIO Ramires CNP Allergies: Dulaglutide, Hydrocodone-acetaminophen, Naproxen, Pioglitazone, Pravastatin, Sitagliptin, Sulindac, Atorvastatin, Latex, and Morphine Social History: TOBACCO: reports that he has been smoking cigarettes. He has a 50.00 pack-year smoking history. He has never used smokeless tobacco. ETOH: reports current alcohol use of about 1.0 standard drink of alcohol per week. RECREATIONAL DRUG USE: Social History Substance and Sexual Activity Drug Use No Family History: Family History Problem Relation Name Age of Onset Hypertension Mother Diabetes Mother Review of Systems: Review of Systems Constitutional: Negative. HENT: Negative. Eyes: Negative. Respiratory: Negative. Cardiovascular: Negative. Gastrointestinal: Negative. Endocrine: Negative. Genitourinary: Negative. Musculoskeletal: Positive for arthralgias and back pain. Skin: Negative. Neurological: Negative. Psychiatric/Behavioral: Negative. Physical Examination: Vitals: 12/11/22 1040 BP: 118/57 Pulse: 60 Temp: 36.6 C (97.8 F) Physical Exam Constitutional: Appearance: Normal appearance. HENT: Head: Normocephalic. Eyes: Extraocular Movements: Extraocular movements intact. Pupils: Pupils are equal, round, and reactive to light. Cardiovascular: Rate and Rhythm: Normal rate. Pulmonary: Effort: Pulmonary effort is normal. Abdominal: Palpations: Abdomen is soft. Musculoskeletal: General: Normal range of motion. Cervical back: Normal range of motion and neck supple. Skin: General: Skin is warm and dry. Neurological: General: No focal deficit present. Mental Status: He is alert and oriented to person, place, and time. Cranial Nerves: Cranial nerves 2-12 are intact. Motor: Motor strength is normal. Gait: Gait is intact. Deep Tendon Reflexes: Reflex Scores: Tricep reflexes are 2+ on the right side and 2+ on the left side. Bicep reflexes are 2+ on the right side and 2+ on the left side. Brachioradialis reflexes are 2+ on the right side and 2+ on the left side. Patellar reflexes are 2+ on the right side and 2+ on the left side. Achilles reflexes are 2+ on the right side and 2+ on the left side. Psychiatric: Mood and Affect: Mood normal. Judgment: Judgment normal. Neurologic Exam Mental Status Oriented to person, place, and time. Cranial Nerves Cranial nerves II through XII intact. CN III, IV, Pupils are equal, round, and reactive to light. Motor Exam Muscle bulk: normal Overall muscle tone: normal Strength Strength 5/5 throughout. Sensory Exam Light touch normal. Gait, Coordination, and Reflexes Gait Gait: normal Reflexes Right brachioradialis: 2+ Left brachioradialis: 2+ Right biceps: 2+ Left biceps: 2+ Right triceps: 2+ Left triceps: 2+ Right patellar: 2+ Left patellar: 2+ Right achilles: 2+ Left achilles: 2+ Right aix administrator: 2+ Left aix administrator: 2+ Incision thoracic and battery site incisions are healing well. There is no bleeding, swelling, drainage, edges are well approximated. Results Labs: Last 24hrs No results found for this or any previous visit (from the past 24 hour(s)). Radiology Personal review: None for review ASSESSMENT / PLAN : Mr. Harrison returns today for his postoperative evaluation after permanent implantation of spinal cord stimulator. He is recovering in usual fashion, his incisions are healing very well. He has requested a refill on his pain medication, this will be refilled today with the understanding that this will likely be his last narcotic pain prescription from us and he needs to reestablish with pain management. At this point he can follow-up with us on a as needed basis, he was instructed to call the office for any questions or concerns. Diagnosis Plan 1. Chronic pain disorder oxyCODONE (Roxicodone) 5 MG immediate release tablet documented in this encounter [facility] 12-06-2022 Note Addended by: KARLA ATKINS on: 12/06/2022 03:17 PM Modules accepted: Orders [facility] 12-06-2022 Telephone encounter Note Spoke with pt and relayed note. They verbalized understanding. [facility] 12-06-2022 Miscellaneous Notes Spoke with pt and relayed note. They verbalized understanding. Addended by: KARLA ATKINS on: 12/06/2022 03:17 PM Modules accepted: Orders Scrip of just oxycodone sent to pharmacy Spoke with pt and relayed note. Pt states he cannot take acetaminophen. He'd like to know if he can have a prescription for just oxycodone. Told him I'd send Rosalba a message and get back to him. He verbalized understanding. Addended by: KARLA ATKINS on: 12/06/2022 11:53 AM Modules accepted: Orders Medication sent to pharmacy on file Requesting refill on medication Med: Oxycodone, tizanidine Sx: SPINAL CORD STIMULATOR PLACEMENT, INSERTION OR REPLACEMENT OF NEUROSTIMULATOR PULSE GENERATOR Sx date: 11/29/2022 Pharmacy: [facility] Last filled: 11/30/2022 documented in this encounter [facility] 12-06-2022 Note Addended by: KARLA ATKINS on: 12/06/2022 03:17 PM Modules accepted: Orders [facility] 12-06-2022 Note Addended by: KARLA ATKINS on: 12/06/2022 03:17 PM Modules accepted: Orders [facility] 12-06-2022 Note Addended by: KARLA ATIKNS on: 12/06/2022 03:17 PM Modules accepted: Orders [facility] 12-06-2022 Note Addended by: KARLA ATKINS on: 12/06/2022 03:17 PM Modules accepted: Orders [facility] 12-06-2022 Telephone encounter Note Scrip of just oxycodone sent to pharmacy [facility] 12-06-2022 Note Addended by: KARLA ATKINS on: 12/06/2022 11:53 AM Modules accepted: Orders [facility] 12-06-2022 Telephone encounter Note Spoke with pt and relayed note. Pt states he cannot take acetaminophen. He'd like to know if he can have a prescription for just oxycodone. Told him I'd send Rosalba a message and get back to him. He verbalized understanding. [facility] 12-06-2022 Note Addended by: KARLA ATKINS on: 12/06/2022 11:53 AM Modules accepted: Orders [facility] 12-06-2022 Note Addended by: KARLA ATKINS on: 12/06/2022 11:53 AM Modules accepted: Orders [facility] 12-06-2022 Note Addended by: KARLA ATKINS on: 12/06/2022 11:53 AM Modules accepted: Orders [facility] 12-06-2022 Note Addended by: KARLA ATKINS on: 12/06/2022 11:53 AM Modules accepted: Orders [facility] 12-06-2022 Telephone encounter Note Medication sent to pharmacy on file [facility] 12-06-2022 Telephone encounter Note Requesting refill on medication Med: Oxycodone, tizanidine Sx: SPINAL CORD STIMULATOR PLACEMENT, INSERTION OR REPLACEMENT OF NEUROSTIMULATOR PULSE GENERATOR Sx date: 11/29/2022 Pharmacy: [facility] Last filled: 11/30/2022 [facility] 12-02-2022 Note Addended by: KARLA ATKINS on: 12/02/2022 10:34 AM Modules accepted: Orders [facility] 12-02-2022 Telephone encounter Note Pt notified [facility] 12-02-2022 Miscellaneous Notes Pt notified Addended by: KARLA ATKINS on: 12/02/2022 10:34 AM Modules accepted: Orders I sent a prescription of tramadol to his pharmacy Pt called stating that he is unable to take the oxycodone due to it messing his stomach up. Pt would like to know if theres something else that he can take. Pharmacy verified with pt documented in this encounter [facility] 12-02-2022 Note Addended by: KARLA ATKINS on: 12/02/2022 10:34 AM Modules accepted: Orders [facility] 12-02-2022 Note Addended by: KARLA ATKINS on: 12/02/2022 10:34 AM Modules accepted: Orders [facility] 12-02-2022 Telephone encounter Note I sent a prescription of tramadol to his pharmacy [facility] 12-02-2022 Telephone encounter Note Pt called stating that he is unable to take the oxycodone due to it messing his stomach up. Pt would like to know if theres something else that he can take. Pharmacy verified with pt [facility] 11-30-2022 Note Discharge Summary Otto Harrison : 1960 ADMIT DATE: 11/29/2022 DISCHARGE DATE: 11/30/2022 PRIMARY CARE PHYSICIAN: ELIGIO GLEZ VISIT STATUS: Observation CODE STATUS: Full Code DISCHARGE DIAGNOSES: Principal Problem: Chronic pain disorder HOSPITAL COURSE: Pt underwent placement of spinal cord stimulator on day of admission. No complications noted. Pt is at baseline and would like to go home. Discharge instructions discussed and pt was discharged home in stable condition. SIGNIFICANT DIAGNOSTIC STUDIES: NA CONSULTANTS: Medicine team RECOMMENDED NEXT STEPS: Follow up in 2 weeks DISCHARGE MEDICATIONS: Medication List START taking these medications oxyCODONE-acetaminophen 5-325 MG tablet Commonly known as: Percocet Take 1 tablet by mouth every 6 hours as needed for moderate pain (4-6) for up to 7 days. tiZANidine 4 MG tablet Commonly known as: Zanaflex Take 1 tablet (4 mg) by mouth every 8 hours as needed for muscle spasms for up to 7 days. CONTINUE taking these medications albuterol 108 (90 Base) MCG/ACT inhaler allopurinol 100 MG tablet Commonly known as: Zyloprim atenolol 50 MG tablet Commonly known as: Tenormin famotidine 40 MG tablet Commonly known as: Pepcid Flovent HFA 110 MCG/ACT inhaler Generic drug: fluticasone flurbiprofen 100 MG tablet Commonly known as: Ansaid gabapentin 400 MG capsule Commonly known as: Neurontin gemfibrozil 600 MG tablet Commonly known as: Lopid glimepiride 4 MG tablet Commonly known as: Amaryl Lantus SoloStar 100 UNIT/ML pen Generic drug: insulin glargine losartan 100 MG tablet Commonly known as: Cozaar metFORMIN 1000 MG tablet Commonly known as: Glucophage montelukast 10 MG tablet Commonly known as: Singulair tamsulosin 0.4 MG 24 hr capsule Commonly known as: Flomax terbinafine 250 MG tablet Commonly known as: LamISIL VITAMIN D PO STOP taking these medications oxyCODONE 5 MG immediate release tablet Commonly known as: Roxicodone Where to Get Your Medications These medications were sent to [id number] - [place], [place] - [address] [facility] [address] [facility] [place] [address] oxyCODONE-acetaminophen 5-325 MG tablet tiZANidine 4 MG tablet DIET: Adult diet Regular ACTIVITY: _Wound care: Removed dressings tomorrow (12/01) then you may shower-Keep incision open to air, do not apply creams or lotions to incision Do not soak in a tub or pool Call the office immediately if you notice any drainage, pus, or signs of infection General Instructions: Patient cannot drive while using opioid pain medications or muscle relaxants COMPLEXITY OF FOLLOW UP: [x] Moderate Complexity: follow up within 7-14 calendar days (00567) [] Severe Complexity: follow up within 7 calendar days (90681) FOLLOW UP TESTING, PENDING RESULTS OR REFERRALS AT TRANSITIONAL CARE VISIT: [] Yes [x] No PENDING STUDIES: NA DISPOSITION: Home FACILITY/HOME CARE AGENCY NAME: NA Follow up with ROGERIO Sanchez CNP [id number] [facility] [id number] Follow up as scheduled on 12/11 at 10:30am INSTRUCTIONS TO MA/SW: Please call patient on day after discharge (must document patient contacted within 2 business days of discharge). FOLLOW UP QUESTIONS FOR MA/SW: 1. Did you get medications filled and taking them as instructed from discharge? 2. Are you following your discharge instructions from your hospital stay? 3. Please confirm patient is scheduled for a follow up appointment within the above time frame. DISCHARGE TIME: > 30 minutes SIGNED: ROGERIO RAMIRES CNP 11/30/2022, 11:04 AM [facility] 11-30-2022 Note Department of Neuros urgery Progress Note SUBJECTIVE: No acute events overnight. Pt doing well. Mild pain at incisional sites and ribs-expected. OBJECTIVE Physical BP 119/62 (BP Location: Left arm, Patient Position: Sitting) Pulse 67 Temp 36.8 ?C (98.2 ?F) (Temporal) Comment: temporal Resp 20 SpO2 95% NEUROLOGIC: A&O x3 VILLALOBOS Strength equal isela Sensation intact Dressings intact ASSESSMENT AND PLAN 61 y.o. male status post spinal cord stimulator placement post op day #1 Pt progressing as expected Pt would like to go home At baseline Discharge instructions discussed Pt to be Dc'd home today in stable condition [facility] 11-30-2022 Hospital course Narrative Discharge Summary Otto Harrison : 1960 ADMIT DATE: 11/29/2022 DISCHARGE DATE: 11/30/2022 PRIMARY CARE PHYSICIAN: ELIGIO GLEZ VISIT STATUS: Observation CODE STATUS: Full Code DISCHARGE DIAGNOSES: Principal Problem: Chronic pain disorder HOSPITAL COURSE: Pt underwent placement of spinal cord stimulator on day of admission. No complications noted. Pt is at baseline and would like to go home. Discharge instructions discussed and pt was discharged home in stable condition. SIGNIFICANT DIAGNOSTIC STUDIES: NA CONSULTANTS: Medicine team RECOMMENDED NEXT STEPS: Follow up in 2 weeks DISCHARGE MEDICATIONS: Medication List START taking these medications oxyCODONE-acetaminophen 5-325 MG tablet Commonly known as: Percocet Take 1 tablet by mouth every 6 hours as needed for moderate pain (4-6) for up to 7 days. tiZANidine 4 MG tablet Commonly known as: Zanaflex Take 1 tablet (4 mg) by mouth every 8 hours as needed for muscle spasms for up to 7 days. CONTINUE taking these medications albuterol 108 (90 Base) MCG/ACT inhaler allopurinol 100 MG tablet Commonly known as: Zyloprim atenolol 50 MG tablet Commonly known as: Tenormin famotidine 40 MG tablet Commonly known as: Pepcid Flovent HFA 110 MCG/ACT inhaler Generic drug: fluticasone flurbiprofen 100 MG tablet Commonly known as: Ansaid gabapentin 400 MG capsule Commonly known as: Neurontin gemfibrozil 600 MG tablet Commonly known as: Lopid glimepiride 4 MG tablet Commonly known as: Amaryl Lantus SoloStar 100 UNIT/ML pen Generic drug: insulin glargine losartan 100 MG tablet Commonly known as: Cozaar metFORMIN 1000 MG tablet Commonly known as: Glucophage montelukast 10 MG tablet Commonly known as: Singulair tamsulosin 0.4 MG 24 hr capsule Commonly known as: Flomax terbinafine 250 MG tablet Commonly known as: LamISIL VITAMIN D PO STOP taking these medications oxyCODONE 5 MG immediate release tablet Commonly known as: Roxicodone Where to Get Your Medications These medications were sent to [id number] - [place] [id number] [id number] oxyCODONE-acetaminophen 5-325 MG tablet tiZANidine 4 MG tablet DIET: Adult diet Regular ACTIVITY: _Wound care: Removed dressings tomorrow (12/01) then you may shower-Keep incision open to air, do not apply creams or lotions to incision Do not soak in a tub or pool Call the office immediately if you notice any drainage, pus, or signs of infection General Instructions: Patient cannot drive while using opioid pain medications or muscle relaxants COMPLEXITY OF FOLLOW UP: [x] Moderate Complexity: follow up within 7-14 calendar days (74343) [] Severe Complexity: follow up within 7 calendar days (00963) FOLLOW UP TESTING, PENDING RESULTS OR REFERRALS AT TRANSITIONAL CARE VISIT: [] Yes [x] No PENDING STUDIES: NA DISPOSITION: Home FACILITY/HOME CARE AGENCY NAME: NA [facility] [address] [facility] [id number] Follow up as scheduled on 12/11 at 10:30am INSTRUCTIONS TO MA/SW: Please call patient on day after discharge (must document patient contacted within 2 business days of discharge). FOLLOW UP QUESTIONS FOR MA/SW: 1. Did you get medications filled and taking them as instructed from discharge? 2. Are you following your discharge instructions from your hospital stay? 3. Please confirm patient is scheduled for a follow up appointment within the above time frame. DISCHARGE TIME: > 30 minutes SIGNED: ROGERIO RAMIRES CNP 11/30/2022, 11:04 AM documented in this encounter [facility] 11-30-2022 Hospital Discharge instructions ROGERIO Ramires CNP - 11/30/2022 11:01 AM EDT Wound care: Removed dressings tomorrow (12/01) then you may shower-Keep incision open to air, do not apply creams or lotions to incision Do not soak in a tub or pool Call the office immediately if you notice any drainage, pus, or signs of infection General Instructions: Patient cannot drive while using opioid pain medications or muscle relaxants Follow up with Rupal Atkins NP as scheduled on 12/11 at 10:30am Call the office with any questions or concerns, documented in this encounter [facility] 11-30-2022 History of Present illness Narrative Department of Neurosurgery Progress Note SUBJECTIVE: No acute events overnight. Pt doing well. Mild pain at incisional sites and ribs-expected. OBJECTIVE Physical BP 119/62 (BP Location: Left arm, Patient Position: Sitting) Pulse 67 Temp 36.8 C (98.2 F) (Temporal) Comment: temporal Resp 20 SpO2 95% NEUROLOGIC: A&O x3 VILLALOBOS Strength equal isela Sensation intact Dressings intact ASSESSMENT AND PLAN 61 y.o. male status post spinal cord stimulator placement post op day #1 Pt progressing as expected Pt would like to go home At baseline Discharge instructions discussed Pt to be Dc'd home today in stable condition documented in this encounter [facility] 11-29-2022 Consult note Associated Order (s): IP CONSULT TO INTERNAL MEDICINE Images from the original note were not included. Hospital Medicine Consult Patient - Otto Harrison, Age - 61 y.o. - 1960 Room Number - @[email or web address]@ Consulting - Jesus Felder MD Primary Care Physician - ELIGIO Robel [facility] # - [id number] Date of Admission - 11/29/2022 8:30 AM Hospital Day - 1 Reason for Consult: Medical Management HISTORY OF PRESENT ILLNESS: Otto is a 61 y.o. male pmhx below who presented for elective spinal cord stimulator placement after failed conservative management of severe chronic pain syndrome. We were consulted for medical management. He reports that he has had no recent COPD flares - he usually smokes ~1.5 PPD - declines nicotine patch. His predominant complaint at this time is some upper abdominal soreness. Feels that this is new since surgery. He did take some Percocet for pain, but refused Miralax that was ordered. He is somewhat of a difficult historian. Does report some periodic GERD symptoms. No recent fevers/chills. Past Medical History: Past Medical History: Diagnosis Date Asthma Chronic back pain COPD (chronic obstructive pulmonary disease) (HCC) Diabetes mellitus (HCC) Diabetic neuropathy (HCC) GERD (gastroesophageal reflux disease) Gout Hyperlipidemia Hypertension Migraines Neuropathy Osteoarthritis Pulmonary emphysema (HCC) Past Surgical History: Past Surgical History: Procedure Laterality Date CARPAL TUNNEL RELEASE Bilateral LUMBAR FUSION x11, multiple back surgeries OTHER SURGICAL HISTORY 09/24/2017 myelogram SPINAL CORD STIMULATOR IMPLANT WRIST SURGERY Left Medications: atenolol, 50 mg, Oral, BID ceFAZolin, 2,000 mg, IntraVENous, q8h docusate sodium, 100 mg, Oral, BID fluticasone, 2 puff, Inhalation, Nightly gabapentin, 400 mg, Oral, 4x daily gemfibrozil, 600 mg, Oral, BID glipiZIDE, 10 mg, Oral, BID AC [START ON 11/30/2022] insulin glargine, 10 Units, SubCUTAneous, q AM Lidocaine, 1 patch, Topical, Daily losartan, 100 mg, Oral, Daily metFORMIN, 1,000 mg, Oral, BID montelukast, 10 mg, Oral, Daily polyethylene glycol (PEG) 3350, 17 g, Oral, Daily sodium chloride 0.9%, 10 mL, IntraVENous, 2 times per day tamsulosin, 0.8 mg, Oral, qPM lactated Ringer's, 50 mL/hr, Last Rate: 50 mL/hr (11/29/22 1050) sodium chloride, 75 mL/hr, Last Rate: 75 mL/hr (11/29/22 1728) PRN medications: albuterol, bisacodyl, bisacodyl, dextrose, dextrose, famotidine, glucagon (rDNA), glucose, morphine sulfate OR morphine sulfate, ondansetron ODT OR ondansetron, oxyCODONE-acetaminophen OR oxyCODONE-acetaminophen, sodium chloride, sodium chloride 0.9%, tiZANidine Allergies: Dulaglutide, Hydrocodone-acetaminophen, Naproxen, Pioglitazone, Pravastatin, Sitagliptin, Sulindac, Atorvastatin, Latex, and Morphine Social History: Social History Socioeconomic History Marital status: Spouse name: Not on file Number of children: Not on file Years of education: Not on file Highest education level: Not on file Occupational History Not on file Tobacco Use Smoking status: Every Day Packs/day: 1.25 Years: 40.00 Additional pack years: 0.00 Total pack years: 50.00 Types: Cigarettes Smokeless tobacco: Never Vaping Use Vaping Use: Never used Substance and Sexual Activity Alcohol use: Yes Alcohol/week: 1.0 standard drink of alcohol Types: 1 Standard drinks or equivalent per week Comment: rare Drug use: No Sexual activity: Not on file Other Topics Concern Not on file Social History Narrative Not on file Social Determinants of Health Financial Resource Strain: Not on file Food Insecurity: Not on file Transportation Needs: Not on file Physical Activity: Not on file Stress: Not on file Social Connections: Not on file Intimate Partner Violence: Not on file Housing Stability: Not on file Family History: Family History Problem Relation Name Age of Onset Hypertension Mother Diabetes Mother REVIEW OF SYSTEMS: 10 point ROS obtained, as per HPI, otherwise NEG Physical Exam: Vitals: BP (!) 144/62 Pulse 60 Temp 36.1 C (97 F) (Temporal) Resp 19 SpO2 100% BMI Classification: Overweight (BMI 25.0-29.9) Pulse Ox: SpO2 Av.8 % Min: 98 % Max: 100 % Supplemental O2: O2 Flow Rate (L/min): 2 L/min Physical Exam Vitals and nursing note reviewed. Constitutional: General: He is not in acute distress. Appearance: He is obese. He is not toxic-appearing. HENT: Mouth/Throat: Mouth: Mucous membranes are moist. Cardiovascular: Rate and Rhythm: Normal rate and regular rhythm. Heart sounds: Normal heart sounds. Pulmonary: Effort: Pulmonary effort is normal. No respiratory distress. Breath sounds: Normal breath sounds. No wheezing. Comments: Cough periodically Abdominal: Palpations: Abdomen is soft. Tenderness: There is abdominal tenderness. Comments: Softly distended Musculoskeletal: General: No swelling or tenderness. Arms: Skin: General: Skin is warm and dry. Neurological: Mental Status: He is oriented to person, place, and time. LABS: Recent Results (from the past 24 hour(s)) POCT glucose meter Collection Time: 11/29/22 8:42 AM Result Value Ref Range Glucose 152 (H) 70 - 100 mg/dL POCT glucose meter Collection Time: 11/29/22 12:42 PM Result Value Ref Range Glucose 146 (H) 70 - 100 mg/dL Urine Culture: No results found for this or any previous visit. IMAGING: See report Assessment Data: (CAT1) Reviewed 3 or more labs/studies ordered by another provider not previously counted (each=1, panels count as 1). (LOW: 2x CAT1 or independent historian MOD: 3x CAT1 or 1x CAT3 EXTENSIVE: 3x CAT1 and 1x CAT3) Acute, acute on chronic, unstable/uncontrolled chronic problems/diagnoses: Chronic pain syndrome s/p spinal cord stimulator placement 11/29 Abdominal pain Stable chronic problems affecting care, new non-acute diagnoses: COPD DM II w/peripheral neuropathy HTN JUNIOR, does not wear CPAP GERD HL Tobacco use, declined patch. Smoking cessation encouraged. Plan As a result of the above findings & factors, the following mgmt was pursued: - continue management per Surgeon -pain control -added PPI for GERD, will also check KUB. ?if abdominal discomfort is r/t positioning during OR -home meds already resumed -continue diabetic meds as ordered; recent Hgb A1c 6.6% - am labs, replace lytes prn - CM/SW - delirium precautions: increase activity and limit nighttime disturbances - DVT prophylaxis: encourage ambulation Complexity: Acute illness with systemic symptoms (MOD). Risk: Prescription drug/IVF/colloid was initiated, discontinued, adjusted; or reviewed with decision to maintain current orders (MOD). Advance Directive: Full Code Anticipated Discharge - Date - TBD, per Surgeon Extended Emergency Contact Information Primary Emergency Contact: Maddy Harrison Mobile Relation: Spouse Cleopatra Baig APRN - [facility] Division of [facility] Medicine [place] [place]: Please note this report has been produced using speech recognition software and may contain errors related to that system including errors in grammar, punctuation, and spelling, as well as words and phrases that may be inappropriate. If there is any questions or concerns please feel free to contact the dictating provider for clarification. The time stamp on this note does not reflect time that patient was seen during the day; it reflects time of documentation. [facility] Phone: 11-29-2022 Consult note Associated Order (s): IP CONSULT TO INTERNAL MEDICINE Images from the original note were not included. Hospital Medicine Consult Patient - Otto Harrison, Age - 61 y.o. - 1960 Room Number - @[email or web address]@ Consulting - Jesus Felder MD Primary Care Physician - ELIGIO Robel [facility] # - [id number] Date of Admission - 11/29/2022 8:30 AM Hospital Day - 1 Reason for Consult: Medical Management HISTORY OF PRESENT ILLNESS: Otto is a 61 y.o. male pmhx below who presented for elective spinal cord stimulator placement after failed conservative management of severe chronic pain syndrome. We were consulted for medical management. He reports that he has had no recent COPD flares - he usually smokes ~1.5 PPD - declines nicotine patch. His predominant complaint at this time is some upper abdominal soreness. Feels that this is new since surgery. He did take some Percocet for pain, but refused Miralax that was ordered. He is somewhat of a difficult historian. Does report some periodic GERD symptoms. No recent fevers/chills. Past Medical History: Past Medical History: Diagnosis Date Asthma Chronic back pain COPD (chronic obstructive pulmonary disease) (HCC) Diabetes mellitus (HCC) Diabetic neuropathy (HCC) GERD (gastroesophageal reflux disease) Gout Hyperlipidemia Hypertension Migraines Neuropathy Osteoarthritis Pulmonary emphysema (HCC) Past Surgical History: Past Surgical History: Procedure Laterality Date CARPAL TUNNEL RELEASE Bilateral LUMBAR FUSION x11, multiple back surgeries OTHER SURGICAL HISTORY 09/24/2017 myelogram SPINAL CORD STIMULATOR IMPLANT WRIST SURGERY Left Medications: atenolol, 50 mg, Oral, BID ceFAZolin, 2,000 mg, IntraVENous, q8h docusate sodium, 100 mg, Oral, BID fluticasone, 2 puff, Inhalation, Nightly gabapentin, 400 mg, Oral, 4x daily gemfibrozil, 600 mg, Oral, BID glipiZIDE, 10 mg, Oral, BID AC [START ON 11/30/2022] insulin glargine, 10 Units, SubCUTAneous, q AM Lidocaine, 1 patch, Topical, Daily losartan, 100 mg, Oral, Daily metFORMIN, 1,000 mg, Oral, BID montelukast, 10 mg, Oral, Daily polyethylene glycol (PEG) 3350, 17 g, Oral, Daily sodium chloride 0.9%, 10 mL, IntraVENous, 2 times per day tamsulosin, 0.8 mg, Oral, qPM lactated Ringer's, 50 mL/hr, Last Rate: 50 mL/hr (11/29/22 1050) sodium chloride, 75 mL/hr, Last Rate: 75 mL/hr (11/29/22 1728) PRN medications: albuterol, bisacodyl, bisacodyl, dextrose, dextrose, famotidine, glucagon (rDNA), glucose, morphine sulfate OR morphine sulfate, ondansetron ODT OR ondansetron, oxyCODONE-acetaminophen OR oxyCODONE-acetaminophen, sodium chloride, sodium chloride 0.9%, tiZANidine Allergies: Dulaglutide, Hydrocodone-acetaminophen, Naproxen, Pioglitazone, Pravastatin, Sitagliptin, Sulindac, Atorvastatin, Latex, and Morphine Social History: Social History Socioeconomic History Marital status: Spouse name: Not on file Number of children: Not on file Years of education: Not on file Highest education level: Not on file Occupational History Not on file Tobacco Use Smoking status: Every Day Packs/day: 1.25 Years: 40.00 Additional pack years: 0.00 Total pack years: 50.00 Types: Cigarettes Smokeless tobacco: Never Vaping Use Vaping Use: Never used Substance and Sexual Activity Alcohol use: Yes Alcohol/week: 1.0 standard drink of alcohol Types: 1 Standard drinks or equivalent per week Comment: rare Drug use: No Sexual activity: Not on file Other Topics Concern Not on file Social History Narrative Not on file Social Determinants of Health Financial Resource Strain: Not on file Food Insecurity: Not on file Transportation Needs: Not on file Physical Activity: Not on file Stress: Not on file Social Connections: Not on file Intimate Partner Violence: Not on file Housing Stability: Not on file Family History: Family History Problem Relation Name Age of Onset Hypertension Mother Diabetes Mother REVIEW OF SYSTEMS: 10 point ROS obtained, as per HPI, otherwise NEG Physical Exam: Vitals: BP (!) 144/62 Pulse 60 Temp 36.1 C (97 F) (Temporal) Resp 19 SpO2 100% BMI Classification: Overweight (BMI 25.0-29.9) Pulse Ox: SpO2 Av.8 % Min: 98 % Max: 100 % Supplemental O2: O2 Flow Rate (L/min): 2 L/min Physical Exam Vitals and nursing note reviewed. Constitutional: General: He is not in acute distress. Appearance: He is obese. He is not toxic-appearing. HENT: Mouth/Throat: Mouth: Mucous membranes are moist. Cardiovascular: Rate and Rhythm: Normal rate and regular rhythm. Heart sounds: Normal heart sounds. Pulmonary: Effort: Pulmonary effort is normal. No respiratory distress. Breath sounds: Normal breath sounds. No wheezing. Comments: Cough periodically Abdominal: Palpations: Abdomen is soft. Tenderness: There is abdominal tenderness. Comments: Softly distended Musculoskeletal: General: No swelling or tenderness. Arms: Skin: General: Skin is warm and dry. Neurological: Mental Status: He is oriented to person, place, and time. LABS: Recent Results (from the past 24 hour(s)) POCT glucose meter Collection Time: 11/29/22 8:42 AM Result Value Ref Range Glucose 152 (H) 70 - 100 mg/dL POCT glucose meter Collection Time: 11/29/22 12:42 PM Result Value Ref Range Glucose 146 (H) 70 - 100 mg/dL Urine Culture: No results found for this or any previous visit. IMAGING: See report Assessment Data: (CAT1) Reviewed 3 or more labs/studies ordered by another provider not previously counted (each=1, panels count as 1). (LOW: 2x CAT1 or independent historian MOD: 3x CAT1 or 1x CAT3 EXTENSIVE: 3x CAT1 and 1x CAT3) Acute, acute on chronic, unstable/uncontrolled chronic problems/diagnoses: Chronic pain syndrome s/p spinal cord stimulator placement 11/29 Abdominal pain Stable chronic problems affecting care, new non-acute diagnoses: COPD DM II w/peripheral neuropathy HTN JUNIOR, does not wear CPAP GERD HL Tobacco use, declined patch. Smoking cessation encouraged. Plan As a result of the above findings & factors, the following mgmt was pursued: - continue management per Surgeon -pain control -added PPI for GERD, will also check KUB. ?if abdominal discomfort is r/t positioning during OR -home meds already resumed -continue diabetic meds as ordered; recent Hgb A1c 6.6% - am labs, replace lytes prn - CM/SW - delirium precautions: increase activity and limit nighttime disturbances - DVT prophylaxis: encourage ambulation Complexity: Acute illness with systemic symptoms (MOD). Risk: Prescription drug/IVF/colloid was initiated, discontinued, adjusted; or reviewed with decision to maintain current orders (MOD). Advance Directive: Full Code Anticipated Discharge - Date - TBD, per Surgeon Extended Emergency Contact Information Primary Emergency Contact: Maddy Harrison Mobile Relation: Spouse Cleopatra Baig APRN - [facility] of [facility] [place] [facility] [place] [place]: Please note this report has been produced using speech recognition software and may contain errors related to that system including errors in grammar, punctuation, and spelling, as well as words and phrases that may be inappropriate. If there is any questions or concerns please feel free to contact the dictating provider for clarification. The time stamp on this note does not reflect time that patient was seen during the day; it reflects time of documentation. documented in this encounter [facility] 11-29-2022 Note Patient: Otto david Procedure Summary Date: 11/29/22 Room / Location: [address] Operating Room Anesthesia Start: 1050 Anesthesia Stop: 1242 Procedures: SPINAL CORD STIMULATOR PLACEMENT (Back) INSERTION OR REPLACEMENT OF NEUROSTIMULATOR PULSE GENERATOR (Back) Diagnosis: Chronic pain syndrome (Chronic pain syndrome [G89.4]) Surgeons: Jesus Felder MD Responsible Provider: Moe Hung MD Anesthesia Type: general ASA Status: 3 Anesthesia Type: general Vitals Value Taken Time BP 140/54 11/29/22 1245 Temp 36.1 ?C (97 ?F) 11/29/22 1236 Pulse 65 11/29/22 1249 Resp 13 11/29/22 1249 SpO2 100 % 11/29/22 1249 Vitals shown include unfiled device data. Anesthesia Post Evaluation Patient location during evaluation: PACU Patient participation: complete - patient participated Level of consciousness: awake and alert Pain management: satisfactory to patient Airway patency: patent Dental Injury: no Cardiovascular status: acceptable, blood pressure returned to baseline and hemodynamically stable Respiratory status: acceptable, spontaneous ventilation and face mask Hydration status: euvolemic Nausea/Vomiting: controlled No notable events documented. Patient can be discharged once all PACU criteria has been met. [facility] 11-29-2022 Note Patient: Otto david Procedure Summary Date: 11/29/22 Room / Location: [address] Operating Room Anesthesia Start: 1050 Anesthesia Stop: 1242 Procedures: SPINAL CORD STIMULATOR PLACEMENT (Back) INSERTION OR REPLACEMENT OF NEUROSTIMULATOR PULSE GENERATOR (Back) Diagnosis: Chronic pain syndrome (Chronic pain syndrome [G89.4]) Surgeons: Jesus Felder MD Responsible Provider: Moe Hung MD Anesthesia Type: general ASA Status: 3 Anesthesia Type: general Vitals Value Taken Time BP 140/54 11/29/22 1245 Temp 36.1 ?C (97 ?F) 11/29/22 1236 Pulse 67 11/29/22 1248 Resp 14 11/29/22 1248 SpO2 100 % 11/29/22 1248 Vitals shown include unfiled device data. Anesthesia Post Evaluation Patient location during evaluation: PACU Patient participation: complete - patient participated Level of consciousness: awake and alert Pain management: satisfactory to patient Multimodal analgesia pain management approach Airway patency: patent Two or more strategies used to mitigate risk of obstructive sleep apnea Cardiovascular status: acceptable and hemodynamically stable Respiratory status: acceptable and face mask Hydration status: acceptable No notable events documented. MIPS #[id number] PONV Patient received an inhalational anesthetic (4554F) Patient does not exhibit three or more risk factors for PONV (X0430)) MIPS # [phone] Perioperative Temperature Management Anesthesia time was 60 minutes or longer (4255F) Anesthesai administered was General (inhalational or TIVA) or Neuraxial block (X0424) At least one body temperature greater than 95.8F/35.5C achieved within the 30 mins immediately prior to or the 15 minutes immediately following anesthesia end time (G9771) MIPS #477 Multimodal Pain Management Not emergent case Patient was administered multimodal pain management (two or more drugs and/or interventions excluding systemic opioids) in the periopeartive period occurring at some time between 6 hours prior to anesthesia start time until discharged from PACU (G2148) MIPS #404 Anesthesiology Smoking Abstinence The patient is a current smoker (G9642) (e.g. cigarette, cigar, pipe, e-cigarette/vaping/marijuana) The patient underwent an elective surgery or procedure requiring anesthesia (G9643) The patient received preop smoking cessation instructions prior to the day of surgery or procedure by MD, APC cisco certified internetwork expert proxy staff (G9497) The patient did not smoke the day of the procedure (G9644) I completed my handoff to the receiving clinician during which we: 1. Identified the patient 2. Identified the responsible provider 3. Reviewed the pertinent medical history 4. Discussed the surgical course 5. Reviewed intra-op anesthesia management and issues during anesthesia 6. Set expectations for post-procedure period 7. Allowed opportunity for questions and acknowledgement of understanding. [facility] 11-29-2022 Miscellaneous Notes Patient's family updated via phone call by RN at this time. OPERATIVE NOTE Patient Name: Otto Harrison : 1960 DATE OF PROCEDURE: 11/29/2022 SURGEON: Jesus Felder MD DANCE DIRECTOR: Karla Atkins CNP PREOPERATIVE DIAGNOSES: Chronic pain syndrome POSTOPERATIVE DIAGNOSES: Same PROCEDURE: Spinal cord stimulator ANESTHESIA: General ESTIMATED BLOOD LOSS: 15 INDICATION FOR PROCEDURE: Mr. Harrison is a 61-year-old gentleman with a history of chronic pain syndrome secondary to low back surgery. He had a successful spinal cord stimulator trial, he wished to have it permanently implanted. DESCRIPTION OF PROCEDURE: Patient was brought to the operative room general endotracheal esthesia was induced. He had spinal cord drawn and he was placed. He was turned prone on spinal Jesus table, his face chest hips arms legs feet were all padded appropriately. C-arm was brought in field to count ribs to the T10 rib, this is marked surgical marker he was prepped and draped in the normal sterile fashion. After appropriate timeout identifying the patient, the type surgery point 5% Marcaine with epinephrine was instilled future incision. Skin incision was made dissection carried out to expose the T9 lamina overlying the T9-T10 disc space. Levels confirmed indirectly via C arm. When the exposure was complete the rongeur was used to remove the spinous process of T9 inferior portion of the T9 lamina was then drilled with the pneumatic Helixis drill to level ligamentum flavum. Combination of 2 and 3 mm Kerrisons were used to remove the remaining bone the thickened ligament underneath. After the dura was exposed the epidural dissector was used to clear space for the lead, it was easily passed. Then the lead was easily passed and the C-arm shot taken it was in good midline position. We then tested the lead and it there was good coverage down both lower extremities to the feet and bilateral paraspinals in the low back. The wound was irrigated out DuraSeal used to temporarily glue the lead in place. Then the muscle fascia was closed with interrupted 0 Vicryl sutures followed by the leads being anchored to the muscle fascia using special anchors and 3-0 silk suture. The leads were then passed to the battery pocket that was created on the patient's right side at his request. The leads were cleaned and dried and plugged into the battery. When impedances were good the battery was implanted in the battery pocket. The remainder of the thoracic incision was closed with interrupted 2-0 Vicryl sutures with magali on the skin. The battery pocket was closed with interrupted 2-0 Vicryl sutures with magali on the skin. Sterile dressing was placed. He was extubated taken recovery in stable fashion. There is no neurosurgical resident available to assist the case, the nurse practitioner assisted to provide suction retraction assistance opening closing allow the case to be formed safely. He had very poor signals in his lower extremities especially the right leg preoperatively they were still diminished postoperatively. They are more consistently monitorable in the left lower extremity. When he woke up he was moving both his right and left lower extremities equally. documented in this encounter [facility] 11-29-2022 Note Formatting of this n ote might be different from the original. Patient's family updated via phone call by RN at this time. [facility] 11-29-2022 Note Airway Date/Time: 11/29/2022 11:01 AM Urgency: scheduled Airway not difficult General Information and Staff Patient location during procedure: Procedural Resident/COFFIN MAKER: Aman Pedro CRNA Performed: SRNA Performed by: Aman Pedro CRNA Authorized by: Aman Pedro CRNA Indications and Patient Condition Indications for airway management: anesthesia Sedation level: Asleep Preoxygenated: yes Patient position: sniffing MILS maintained throughout Mask difficulty assessment: 2 - vent by mask + OA or adjuvant +/- NMBA Final Airway Details Final airway type: endotracheal airway Successful airway: ETT Cuffed: yes Successful intubation technique: direct laryngoscopy Facilitating devices/methods: intubating stylet and anterior pressure/BURP Endotracheal tube insertion site: oral Blade: Dylan Blade size: #3 ETT size (mm): 8.0 Cormack-Lehane Classification: grade I - full view of glottis Placement verified by: capnometry Measured from: lips ETT to lips (cm): 23 Number of attempts at approach: 1 Number of other approaches attempted: 0 [facility] 11-29-2022 Note Formatting of this n ote might be different from the original. OPERATIVE NOTE Patient Name: Otto Harrison : 1960 DATE OF PROCEDURE: 11/29/2022 SURGEON: Jesus Felder MD DANCE DIRECTOR: Karla Atkins CNP PREOPERATIVE DIAGNOSES: Chronic pain syndrome POSTOPERATIVE DIAGNOSES: Same PROCEDURE: Spinal cord stimulator ANESTHESIA: General ESTIMATED BLOOD LOSS: 15 INDICATION FOR PROCEDURE: Mr. Harrison is a 61-year-old gentleman with a history of chronic pain syndrome secondary to low back surgery. He had a successful spinal cord stimulator trial, he wished to have it permanently implanted. DESCRIPTION OF PROCEDURE: Patient was brought to the operative room general endotracheal esthesia was induced. He had spinal cord drawn and he was placed. He was turned prone on spinal Jesus table, his face chest hips arms legs feet were all padded appropriately. C-arm was brought in field to count ribs to the T10 rib, this is marked surgical marker he was prepped and draped in the normal sterile fashion. After appropriate timeout identifying the patient, the type surgery point 5% Marcaine with epinephrine was instilled future incision. Skin incision was made dissection carried out to expose the T9 lamina overlying the T9-T10 disc space. Levels confirmed indirectly via C arm. When the exposure was complete the rongeur was used to remove the spinous process of T9 inferior portion of the T9 lamina was then drilled with the pneumatic Helixis drill to level ligamentum flavum. Combination of 2 and 3 mm Kerrisons were used to remove the remaining bone the thickened ligament underneath. After the dura was exposed the epidural dissector was used to clear space for the lead, it was easily passed. Then the lead was easily passed and the C-arm shot taken it was in good midline position. We then tested the lead and it there was good coverage down both lower extremities to the feet and bilateral paraspinals in the low back. The wound was irrigated out DuraSeal used to temporarily glue the lead in place. Then the muscle fascia was closed with interrupted 0 Vicryl sutures followed by the leads being anchored to the muscle fascia using special anchors and 3-0 silk suture. The leads were then passed to the battery pocket that was created on the patient's right side at his request. The leads were cleaned and dried and plugged into the battery. When impedances were good the battery was implanted in the battery pocket. The remainder of the thoracic incision was closed with interrupted 2-0 Vicryl sutures with magali on the skin. The battery pocket was closed with interrupted 2-0 Vicryl sutures with magali on the skin. Sterile dressing was placed. He was extubated taken recovery in stable fashion. There is no neurosurgical resident available to assist the case, the nurse practitioner assisted to provide suction retraction assistance opening closing allow the case to be formed safely. He had very poor signals in his lower extremities especially the right leg preoperatively they were still diminished postoperatively. They are more consistently monitorable in the left lower extremity. When he woke up he was moving both his right and left lower extremities equally. [facility] 11-29-2022 Note History Of Present I llness Otto Harrison is a 61 y.o. male presenting with a chronic pain syndrome. He has had a successful SCS trial and wants a permanent implant. Past Medical History He has a past medical history of Asthma, Chronic back pain, COPD (chronic obstructive pulmonary disease) (HCC), Diabetes mellitus (HCC), Diabetic neuropathy (HCC), GERD (gastroesophageal reflux disease), Gout, Hyperlipidemia, Hypertension, Migraines, Neuropathy, Osteoarthritis, and Pulmonary emphysema (HCC). Surgical History He has a past surgical history that includes Other surgical history (09/24/2017); Lumbar fusion; Carpal tunnel release (Bilateral); and Wrist surgery (Left). Social History He reports that he has been smoking cigarettes. He has a 50.00 pack-year smoking history. He has never used smokeless tobacco. He reports current alcohol use of about 1.0 standard drink of alcohol per week. He reports that he does not use drugs. Allergies Dulaglutide, Hydrocodone-acetaminophen, Naproxen, Pioglitazone, Pravastatin, Sitagliptin, Sulindac, Atorvastatin, Latex, and Morphine Medications No medications prior to admission. Review of Systems + chronic pain Physical Exam 07/05 B LE Last Recorded Vitals There were no vitals taken for this visit. Relevant Results None Assessment/Plan Active Problems: There are no active Hospital Problems. Chronic pain syndrome SCS Risks/Benefits of the surgery have been discussed with the patient including but not limited to bleeding and hematoma formation, infection, abdominal pain, spinal cord injury, permanent weakness and . Pt and family understand and agree to the procedure. [facility] 11-29-2022 History and physical note History Of Present Illness Otto Harrison is a 61 y.o. male presenting with a chronic pain syndrome. He has had a successful SCS trial and wants a permanent implant. Past Medical History He has a past medical history of Asthma, Chronic back pain, COPD (chronic obstructive pulmonary disease) ([facility]), Diabetes mellitus (HCC), Diabetic neuropathy (HCC), GERD (gastroesophageal reflux disease), Gout, Hyperlipidemia, Hypertension, Migraines, Neuropathy, Osteoarthritis, and Pulmonary emphysema ([facility]). Surgical History He has a past surgical history that includes Other surgical history (09/24/2017); Lumbar fusion; Carpal tunnel release (Bilateral); and Wrist surgery (Left). Social History He reports that he has been smoking cigarettes. He has a 50.00 pack-year smoking history. He has never used smokeless tobacco. He reports current alcohol use of about 1.0 standard drink of alcohol per week. He reports that he does not use drugs. Allergies Dulaglutide, Hydrocodone-acetaminophen, Naproxen, Pioglitazone, Pravastatin, Sitagliptin, Sulindac, Atorvastatin, Latex, and Morphine Medications No medications prior to admission. Review of Systems + chronic pain Physical Exam 07/05 B LE Last Recorded Vitals There were no vitals taken for this visit. Relevant Results None Assessment/Plan Active Problems: There are no active Hospital Problems. Chronic pain syndrome SCS Risks/Benefits of the surgery have been discussed with the patient including but not limited to bleeding and hematoma formation, infection, abdominal pain, spinal cord injury, permanent weakness and . Pt and family understand and agree to the procedure. [facility] Phone: 11-29-2022 History and physical note History Of Present Illness Otto Harrison is a 61 y.o. male presenting with a chronic pain syndrome. He has had a successful SCS trial and wants a permanent implant. Past Medical History He has a past medical history of Asthma, Chronic back pain, COPD (chronic obstructive pulmonary disease) (HCC), Diabetes mellitus (HCC), Diabetic neuropathy (HCC), GERD (gastroesophageal reflux disease), Gout, Hyperlipidemia, Hypertension, Migraines, Neuropathy, Osteoarthritis, and Pulmonary emphysema (HCC). Surgical History He has a past surgical history that includes Other surgical history (09/24/2017); Lumbar fusion; Carpal tunnel release (Bilateral); and Wrist surgery (Left). Social History He reports that he has been smoking cigarettes. He has a 50.00 pack-year smoking history. He has never used smokeless tobacco. He reports current alcohol use of about 1.0 standard drink of alcohol per week. He reports that he does not use drugs. Allergies Dulaglutide, Hydrocodone-acetaminophen, Naproxen, Pioglitazone, Pravastatin, Sitagliptin, Sulindac, Atorvastatin, Latex, and Morphine Medications No medications prior to admission. Review of Systems + chronic pain Physical Exam 07/05 B LE Last Recorded Vitals There were no vitals taken for this visit. Relevant Results None Assessment/Plan Active Problems: There are no active Hospital Problems. Chronic pain syndrome SCS Risks/Benefits of the surgery have been discussed with the patient including but not limited to bleeding and hematoma formation, infection, abdominal pain, spinal cord injury, permanent weakness and . Pt and family understand and agree to the procedure. documented in this encounter [facility] 11-25-2022 Note Patient: Otto david Procedure Information Date/Time: 11/29/22 1030 Procedures: SPINAL CORD STIMULATOR PLACEMENT (Back) INSERTION OR REPLACEMENT OF NEUROSTIMULATOR PULSE GENERATOR (Back) Location: [facility] [address] [place] [address] Operating Room Surgeons: Jesus Felder MD Past Medical History: Past Medical History: No date: Asthma No date: Chronic back pain No date: COPD (chronic obstructive pulmonary disease) (HCC) No date: Diabetes mellitus (HCC) No date: Diabetic neuropathy (HCC) No date: GERD (gastroesophageal reflux disease) No date: Gout No date: Hyperlipidemia No date: Hypertension No date: Migraines No date: Neuropathy No date: Osteoarthritis No date: Pulmonary emphysema (HCC) Past Surgical History: Past Surgical History: No date: CARPAL TUNNEL RELEASE; Bilateral No date: LUMBAR FUSION Comment: x11, multiple back surgeries 09/24/2017: OTHER SURGICAL HISTORY Comment: myelogram No date: WRIST SURGERY; Left Social History: TOBACCO: reports that he has been smoking cigarettes. He has a 50.00 pack-year smoking history. He has never used smokeless tobacco. ETOH: reports current alcohol use of about 1.0 standard drink of alcohol per week. Social History Substance and Sexual Activity Drug Use No Family History: Family History Problem Relation Name Age of Onset ? Hypertension Mother ? Diabetes Mother Screening: unknown Clinical information reviewed: Tobacco Allergies Meds Med Hx Surg Hx Fam Hx Soc Hx Physical Exam Airway Mallampati: III TM distance: >3 FB Neck ROM: full Mouth Open: normalendotracheal tube not in place Cardiovascular Dental (+) Upper Dentures, Lower Dentures, edentulous Pulmonary Abdominal Anesthesia Plan patient is NPO appropriate Any family history or previous problems with anesthesia no ASA 3 general Any family history or previous problems with anesthesia no (Per H&P BRAZER ASSEMBLER reviewed EKG with Dr. Souza. EKG: EKG reviewed with Dr. Souza: no acute changes and benign. No further evaluation needed ) The patient is a current smoker. Patient was previously instructed to abstain from smoking on day of procedure. Patient did not smoke on day of procedure. Anesthetic plan and risks discussed with patient and spouse. Blood Glucose Patient is not currently taking lantus Insulin Sliding Scale: low ERAS Type General ERAS JUNIOR Screening Labs: No results found for: WBC, HGB, HCT, MCV, PLT No results found for: NA, K, CL, CO2, BUN, CREATININE, GLUCOSE, CALCIUM, PROT, BILIRUBINFL, ALKPHOS, AST, ALT, EGFR, GLOB No echocardiogram results found for the past 14 days No results found for this or any previous visit. [facility] 11-25-2022 Note Comprehensive Pre Saucedo rgical History and Physical ? Name: Otto Harrison : 1960 (Age-61 y.o.) Date of Service: Pt seen/examined on 11/25/2022 Procedure Information Date/Time: 11/29/22 1030 Procedures: SPINAL CORD STIMULATOR PLACEMENT (Back) INSERTION OR REPLACEMENT OF NEUROSTIMULATOR PULSE GENERATOR (Back) Location: [facility] [address] [place] [address] Operating Room Surgeons: Jesus Felder MD Chief Complaint: Chronic pain syndrome [G89.4] ASSESSMENT/PLAN: Patient is considered intermediate risk for this intermediate risk procedure/surgery . Based on the above evaluation, the benefits of the planned procedure likely exceed the risks. The patient is medically optimized to proceed with the planned procedure without any further cardiopulmonary testing. 1) Chronic pain syndrome [G89.4] - Managed per surgery BMP, CBC, A1C, EKG per PAT protocol 2) Type 2 DM with neuropathy Amaryl, metformin, lantus. States not currently taking his lantus Neurontin for neuropathy Last HBA1C <7% a few months ago per patient report Checks sugar at home occasionally, 99-130 fasting A!C today per PAT protocol 3) HTN Atenolol, cozaar Checks BP at home occasionally 130 systolic typically BP Readings from Last 3 Encounters: 11/25/22 127/88 11/13/22 118/69 4) JUNIOR Noncompliant with mask 5) COPD Albuterol, flovent, singulair Uses albuterol at bedtime No recent exacerbations No cough, wheezing, fever 6) GERD Pepcid 7) Gout alopurinol 8) Hyperlipidemia Lopid Visit Type: Pre-Admission Testing Visit Labs Ordered: YES - PER PAT PROTOCOL Sleep Referral Ordered: NO - ALREADY DIAGNOSED WITH JUNIOR AND PATIENT IS NOT COMPLIANT WITH CPAP Total time spent (which include face to face and non face to face encounters) : 30 minutes Toxic drug monitoring/narrow therapeutic index drug monitoring : # Drug name : n/a # Route administered : n/a # Method of monitoring : n/a PAT Protocol referenced includes: 1. Anesthesia Lab Protocol Orders 2. Perioperative Cardiovascular Risk Assessment 3. Anesthesia Assessment 4. Pain Assessment and Acute Pain Service Consult (if appropriate) 5. Medical Clearance/Consult from Internal Medicine ([facility]) 6. Shower/Wash Order (for designated surgeries) 7. JUNIOR Screen and Sleep Clinic Referral (if appropriate) History Of Present Illness: 61 y.o. male who we are asked to see/evaluate by for pre-operative evaluation prior to above procedure. Hx of chronic low back pain. Following with Dr. Felder. Per last OV, has had a successful spinal cord stimulator trail and is electing for permanent implantation. Denies prior problems with anesthesia Denies c/o chest pain, sob, syncope, edema, fever, chills, NVD METS >4 ? Denies history of TX, CAD, CHF, TIA, CVA Past Medical History: Past Medical History: No date: Asthma No date: Chronic back pain No date: COPD (chronic obstructive pulmonary disease) ([facility]) No date: Diabetes mellitus ([facility]) No date: Diabetic neuropathy ([facility]) No date: GERD (gastroesophageal reflux disease) No date: Gout No date: Hyperlipidemia No date: Hypertension No date: Migraines No date: Neuropathy No date: Osteoarthritis No date: Pulmonary emphysema ([facility]) Past Surgical History: Past Surgical History: No date: CARPAL TUNNEL RELEASE; Bilateral No date: LUMBAR FUSION Comment: x11, multiple back surgeries 09/24/2017: OTHER SURGICAL HISTORY Comment: myelogram No date: WRIST SURGERY; Left Medications Prior to Admission: Prior to Admission medications Medication Sig Start Date End Date Taking? Authorizing Provider albuterol 108 (90 Base) MCG/ACT inhaler inhale 2 puffs by mouth and INTO THE LUNGS four times a day 11/01/22 Historical Provider, allopurinol (Zyloprim) 100 MG tablet Take 200 mg by mouth daily. 01/27/22 Historical Provider, atenolol (Tenormin) 50 MG tablet Take 50 mg by mouth 2 times daily. 10/21/22 Historical Provider, famotidine (Pepcid) 40 MG tablet Take 40 mg by mouth daily. 10/29/22 Historical Provider, Flovent HFA 110 MCG/ACT inhaler Inhale 2 puffs in the morning and 2 puffs in the evening. 09/12/22 Historical Provider, flurbiprofen (Ansaid) 100 MG tablet Take 100 mg by mouth 2 times daily as needed. 10/07/22 Historical Provider, gabapentin (Neurontin) 400 MG capsule 4 times daily. Historical Provider, gemfibrozil (Lopid) 600 MG tablet Take 600 mg by mouth 2 times daily. 10/21/22 Historical Provider, glimepiride (Amaryl) 4 MG tablet Take 4 mg by mouth 2 times daily. 09/02/22 Historical Provider, Lantus SoloStar 100 UNIT/ML pen inject 10 units subcutaneously once daily 11/05/22 Historical Provider, losartan (Cozaar) 100 MG tablet Take 100 mg by mouth daily. 09/28/22 Historical Provider, metFORMIN (Glucophage) 1000 MG tablet Take 1,00 (more content not included)... [facility] 11-25-2022 Note Comprehensive Pre Saucedo rgical History and Physical ? Name: Otto Harrison : 1960 (Age-61 y.o.) Date of Service: Pt seen/examined on 11/25/2022 Procedure Information Date/Time: 11/29/22 1030 Procedures: SPINAL CORD STIMULATOR PLACEMENT (Back) INSERTION OR REPLACEMENT OF NEUROSTIMULATOR PULSE GENERATOR (Back) Location: [facility] [address] [place] [address] Operating Room Surgeons: Jesus Felder MD Chief Complaint: Chronic pain syndrome [G89.4] ASSESSMENT/PLAN: Patient is considered intermediate risk for this intermediate risk procedure/surgery . Based on the above evaluation, the benefits of the planned procedure likely exceed the risks. The patient is medically optimized to proceed with the planned procedure without any further cardiopulmonary testing. 1) Chronic pain syndrome [G89.4] - Managed per surgery BMP, CBC, A1C, EKG per PAT protocol 2) Type 2 DM with neuropathy Amaryl, metformin, lantus. States not currently taking his lantus Neurontin for neuropathy Last HBA1C <7% a few months ago per patient report Checks sugar at home occasionally, 99-130 fasting A!C today per PAT protocol 3) HTN Atenolol, cozaar Checks BP at home occasionally 130 systolic typically BP Readings from Last 3 Encounters: 11/25/22 127/88 11/13/22 118/69 4) JUNIOR Noncompliant with mask 5) COPD Albuterol, flovent, singulair Uses albuterol at bedtime No recent exacerbations No cough, wheezing, fever 6) GERD Pepcid 7) Gout alopurinol 8) Hyperlipidemia Lopid Visit Type: Pre-Admission Testing Visit Labs Ordered: YES - PER PAT PROTOCOL Sleep Referral Ordered: NO - ALREADY DIAGNOSED WITH JUNIOR AND PATIENT IS NOT COMPLIANT WITH CPAP Total time spent (which include face to face and non face to face encounters) : 30 minutes Toxic drug monitoring/narrow therapeutic index drug monitoring : # Drug name : n/a # Route administered : n/a # Method of monitoring : n/a PAT Protocol referenced includes: 1. Anesthesia Lab Protocol Orders 2. Perioperative Cardiovascular Risk Assessment 3. Anesthesia Assessment 4. Pain Assessment and Acute Pain Service Consult (if appropriate) 5. Medical Clearance/Consult from Internal Medicine ([facility]) 6. Shower/Wash Order (for designated surgeries) 7. JUNIOR Screen and Sleep Clinic Referral (if appropriate) History Of Present Illness: 61 y.o. male who we are asked to see/evaluate by for pre-operative evaluation prior to above procedure. Hx of chronic low back pain. Following with Dr. Feledr. Per last OV, has had a successful spinal cord stimulator trail and is electing for permanent implantation. Denies prior problems with anesthesia Denies c/o chest pain, sob, syncope, edema, fever, chills, NVD METS >4 ? Denies history of TX, CAD, CHF, TIA, CVA Past Medical History: Past Medical History: No date: Asthma No date: Chronic back pain No date: COPD (chronic obstructive pulmonary disease) ([facility]) No date: Diabetes mellitus (HCC) No date: Diabetic neuropathy ([facility]) No date: GERD (gastroesophageal reflux disease) No date: Gout No date: Hyperlipidemia No date: Hypertension No date: Migraines No date: Neuropathy No date: Osteoarthritis No date: Pulmonary emphysema (HCC) Past Surgical History: Past Surgical History: No date: CARPAL TUNNEL RELEASE; Bilateral No date: LUMBAR FUSION Comment: x11, multiple back surgeries 09/24/2017: OTHER SURGICAL HISTORY Comment: myelogram No date: WRIST SURGERY; Left Medications Prior to Admission: Prior to Admission medications Medication Sig Start Date End Date Taking? Authorizing Provider albuterol 108 (90 Base) MCG/ACT inhaler inhale 2 puffs by mouth and INTO THE LUNGS four times a day 11/01/22 Historical Provider, allopurinol (Zyloprim) 100 MG tablet Take 200 mg by mouth daily. 01/27/22 Historical Provider, atenolol (Tenormin) 50 MG tablet Take 50 mg by mouth 2 times daily. 10/21/22 Historical Provider, famotidine (Pepcid) 40 MG tablet Take 40 mg by mouth daily. 10/29/22 Historical Provider, Flovent HFA 110 MCG/ACT inhaler Inhale 2 puffs in the morning and 2 puffs in the evening. 09/12/22 Historical Provider, flurbiprofen (Ansaid) 100 MG tablet Take 100 mg by mouth 2 times daily as needed. 10/07/22 Historical Provider, gabapentin (Neurontin) 400 MG capsule 4 times daily. Historical Provider, gemfibrozil (Lopid) 600 MG tablet Take 600 mg by mouth 2 times daily. 10/21/22 Historical Provider, glimepiride (Amaryl) 4 MG tablet Take 4 mg by mouth 2 times daily. 09/02/22 Historical Provider, Lantus SoloStar 100 UNIT/ML pen inject 10 units subcutaneously once daily 11/05/22 Historical Provider, losartan (Cozaar) 100 MG tablet Take 100 mg by mouth daily. 09/28/22 Historical Provider, metFORMIN (Glucophage) 1000 MG tablet Take 1,00 (more content not included)... [facility] 11-13-2022 History of Present illness Narrative NEUROSURGERY CONSULT NOTE Patient Name: Otto Harrison Patient : 1960 PCP: ELIGIO GLEZ History of Present Ilness: 61 y.o. presents with request for SCS. Patient reports that he has had multiple low back surgeries in the past. He states low back pain as well as bilateral leg pain. He states significant relief with SCS trial, >50% relief and would like one permanently placed. Chief Complaint Patient presents with New Patient Postlaminectomy syndrome Past Medical History: Past Medical History: Diagnosis Date Diabetes mellitus (HCC) Diabetic neuropathy (HCC) GERD (gastroesophageal reflux disease) Hyperlipidemia Hypertension Osteoarthritis Past Surgical History: Past Surgical History: Procedure Laterality Date LUMBAR FUSION MYELOMININGOCELE REPAIR THIS WAS ADDED IN ERROR, UNABLE TO REMOVE 09/24/17 OTHER SURGICAL HISTORY 09/24/2017 myelogram Home Medications: Prior to Admission medications Medication Sig Start Date End Date Taking? Authorizing Provider albuterol 108 (90 Base) MCG/ACT inhaler inhale 2 puffs by mouth and INTO THE LUNGS four times a day 11/01/22 Historical Provider, famotidine (Pepcid) 40 MG tablet Take 40 mg by mouth daily. 10/29/22 Historical Provider, Allergies: Dulaglutide, Hydrocodone-acetaminophen, Naproxen, Pioglitazone, Pravastatin, Sitagliptin, Sulindac, Atorvastatin, Latex, and Morphine Social History: TOBACCO: reports that he has been smoking cigarettes. He has been smoking an average of 1.25 packs per day. He has never used smokeless tobacco. ETOH: reports current alcohol use of about 1.0 standard drink of alcohol per week. RECREATIONAL DRUG USE: Social History Substance and Sexual Activity Drug Use No Family History: Family History Problem Relation Name Age of Onset Hypertension Mother Diabetes Mother Review of Systems Constitutional: Negative. HENT: Negative. Eyes: Negative. Respiratory: Negative. Cardiovascular: Negative. Gastrointestinal: Negative. Endocrine: Negative. Genitourinary: Negative. Musculoskeletal: Positive for back pain. Skin: Negative. Neurological: Negative. Psychiatric/Behavioral: Negative. Physical Examination: Vitals: 11/13/22 1104 BP: 118/69 Pulse: 60 Resp: 16 Temp: 36.7 C (98.1 F) Physical Exam Constitutional: Appearance: Normal appearance. HENT: Head: Normocephalic. Eyes: Extraocular Movements: Extraocular movements intact. Pupils: Pupils are equal, round, and reactive to light. Cardiovascular: Rate and Rhythm: Normal rate. Pulmonary: Effort: Pulmonary effort is normal. Abdominal: Palpations: Abdomen is soft. Musculoskeletal: General: Normal range of motion. Cervical back: Normal range of motion and neck supple. Skin: General: Skin is warm and dry. Neurological: General: No focal deficit present. Mental Status: He is alert and oriented to person, place, and time. Cranial Nerves: Cranial nerves 2-12 are intact. Motor: Motor strength is normal. Gait: Gait is intact. Deep Tendon Reflexes: Reflex Scores: Tricep reflexes are 2+ on the right side and 2+ on the left side. Bicep reflexes are 2+ on the right side and 2+ on the left side. Brachioradialis reflexes are 2+ on the right side and 2+ on the left side. Patellar reflexes are 2+ on the right side and 2+ on the left side. Achilles reflexes are 2+ on the right side and 2+ on the left side. Psychiatric: Mood and Affect: Mood normal. Judgment: Judgment normal. Neurologic Exam Mental Status Oriented to person, place, and time. Cranial Nerves Cranial nerves II through XII intact. CN III, IV, Pupils are equal, round, and reactive to light. Motor Exam Muscle bulk: normal Overall muscle tone: normal Strength Strength 5/5 throughout. Sensory Exam Light touch normal. Gait, Coordination, and Reflexes Gait Gait: normal Reflexes Right brachioradialis: 2+ Left brachioradialis: 2+ Right biceps: 2+ Left biceps: 2+ Right triceps: 2+ Left triceps: 2+ Right patellar: 2+ Left patellar: 2+ Right achilles: 2+ Left achilles: 2+ Right aix administrator: 2+ Left aix administrator: 2+ Results Labs: Last 24hrs No results found for this or any previous visit (from the past 24 hour(s)). Radiology Personal review: None for review ASSESSMENT / PLAN : Chronic pain syndrome. He has had a successful spinal cord stimulator trial, he would like to have one permanently implanted. Today risks and benefits of the procedure were discussed with him and his family, they would like to proceed with surgery. We will schedule him for surgery at his convenience. Procedure: Spinal cord stimulator Anesthesia: GET Time: 2 Positioning/Frame: [employer]/Implants: Correa O-Arm: N C-Arm: Y Stealth Navigation: N Roberson: N Microscope: N Brace: N Pre-Op Imaging:N Intranerve: Y Inpatient/Outpatient: Over night Medications to DC: N Other: [id number], [id number] Diagnosis Plan 1. Chronic pain syndrome documented in this encounter [facility] 08-27-2021 Miscellaneous Notes Pharmacy faxed requesting the following refill. Pending Prescriptions Disp Refills FINASTERIDE 5 MG TABLET 90 tablet 1 Sig: TAKE 1 TABLET BY MOUTH EVERY DAY GUTIERREZ: Yes Patient last appointment: 07/26/2021 Patient Phone numbers: [phone] (home) Request is for script(s) to be escript to pharmacy. Victor Hugo Monzon MA documented in this encounter [facility] 03-14-2021 Note HNO ID: [id number] Author: Fareed Lindsey Jr., MD Service: ? Author Type: Physician Type: Procedures Filed: 03/14/2021 10:40 AM Note Text: CYSTOSCOPY PROCEDURE NOTE: Thoams Harrison is a 60 year old male who presents with BPH for cystoscopy. Pt ID verified with patient: Yes Fire risk assessment done Procedure verified with patient: Yes Procedure confirmed with physician and customer support representative: Yes Previous note - ho BPH. +++frequency/urgency. On flomax. Did not help much. pvr 272 at [facility] office. ++++caffeine. Significant bother. psa 1.64 Sign In History and Physical Exam reviewed and is unchanged. . Informed Consent Discussed: Yes. Risks, benefits, alternatives and personnel discussed with patient who consents to proceed. Sign in Communication: Completed Time Out: Team Confirms the Correct Patient, Correct Procedure; Cystoscopy, Correct Site and Site Marking, Correct Position (if applicable). Fire Safety Check List Reviewed: Yes Affirmation of Time Out: Yes Sign Out: Sign Out Discussion: Completed Physician: Fareed Lindsey Jr, MD Pre procedure dx: bph/luts Post procedure dx: same A urinalysis was performed revealing no evidence of infection. The benefits, risks, alternatives of the cystoscopy procedure and personnel were discussed with the patient. The verbal consent was obtained and the patient agrees to proceed. Procedure: The patient was placed on the procedure table in the supine position and prepped and draped in the usual sterile fashion. 2% Lidocaine Jelly was placed per urethra as an anesthetic in the standard fashion. Once adequate local anesthesia was achieved, the tip of the flexible cystoscope was carefully placed into the urethra under direct visual guidance. The scope was negotiated through the pendulous urethra to the level of the bulbar urethra with no evidence of stricture. The verumontanum came into view and the scope was negotiated through the prostatic urethra which showed evidence of mild to moderate bi lobar occlusive disease. The bladder was entered and careful ruiz endoscopy was carried out. The posterior, superior and lateral hanson and dome of the bladder were all well visualized and the scope was retroflexed upon itself. The findings were consistent with no evidence of bladder mucosal pathology. At the conclusion of the procedure, the flexible cystoscope was removed atraumatically. The patient tolerated the procedure without complications. Patient was given standard post-procedure instructions, and was directed to complete the course of oral antibiotics and increase oral fluid intake as directed. ASSESSMENT/PLAN: Cont flomax daily Reduce caffeine Add finasteride Fu 4 months If not better then consider surgery - good urolift candidate psa prior to next visit Fareed Lindsey Jr, MD [facility] 03-13-2021 Note HNO ID: [id number] Author: Fareed Lindsey Jr., MD Service: ? Author Type: Physician Type: Progress Notes Filed: 03/14/2021 10:26 AM Note Text: ESTABLISHED PATIENT OFFICE VISIT HPI Thomas Harrison is a 60 year old male who presents with ho BPH. +++frequency/urgency. On flomax. Did not help much. pvr 272 at [facility] office. ++++caffeine. Significant bother LAB: Creatinine Date Value Ref Range Status 07/19/2020 0.78 0.73 - 1.22 mg/dL Final PSA Screening (ng/mL) Date Value 05/16/2020 1.64 03/31/2015 0.64 No results found for: UGLUC, UBILI, UKET, SPGR, UHB, UPH, UPROT, UROBIL, NITRITES, UWBC, UCOLAP MEDICATIONS: allopurinol (ZYLOPRIM) 100 mg tablet Take 100 mg by mouth twice daily with meals. montelukast (SINGULAIR) 10 mg tablet Take 10 mg by mouth once daily. tamsulosin (FLOMAX) 0.4 mg Take 0.4 mg by mouth once daily. oxyCODONE ir (OXYIR) 5 mg capsule Take 5 mg by mouth. 5 tablets every day traZODone (DESYREL) 50 mg tablet TAKE 1 TABLET BY MOUTH EVERY DAY AT BEDTIME atenolol (TENORMIN) 50 mg tablet Take 1 tablet by mouth twice daily. metFORMIN ER (GLUCOPHAGE XR) 500 mg 24 hr tablet Take 2 tablets by mouth twice daily with meals. glimepiride (AMARYL) 4 mg tablet Take 1 tablet by mouth twice daily with meals. sitaGLIPtin (JANUVIA) 100 mg tablet Take 1 tablet by mouth once daily. famotidine (PEPCID) 40 mg tablet Take 1 tablet by mouth once daily. fluticasone (FLONASE) 50 mcg/actuation nasal spray Use 2 Sprays in each nostril once daily. Rinse mouth after use. clotrimazole-betamethasone (LOTRISONE) lotion Apply 1 application to affected area twice daily. VENTOLIN HFA 90 mcg/actuation inhaler AWAITING PRIOR AUTH...INHALE 2 PUFFS INSTRUCTED FOUR TIMES DAILY. gabapentin (NEURONTIN) 300 mg capsule Take 3 capsules by mouth daily at bedtime. fluticasone (FLOVENT HFA) 110 mcg/actuation inhaler Inhale 2 Puffs as instructed twice daily. Flurbiprofen 100 mg tablet Take 1 tablet by mouth twice daily. gemfibrozil (LOPID) 600 mg tablet Take 1 tablet by mouth twice daily. acetaminophen 325 mg-caffeine 40 mg-butalbital 50 mg (FIORICET) per tablet Take 1 tablet by mouth twice daily as needed for Pain (headache). polyethylene glycol 3350 (MIRALAX, GLYCOLAX) 17 gram/dose powder Take 17 g by mouth once daily. blood sugar diagnostic (ONETOUCH ULTRA TEST) test strip Test blood sugar(s) 2 times daily. Dx: 250.02. Insulin: Yes insulin needles, DISPOSABLE, (PEN NEEDLE) 31 X 07/16 ndle Use one needle per dose. 1 per day. Lancets (Move LootTOUCH ULTRASOFT LANCETS) lancets Test blood sugar(s) 2 times daily. Dx: 250.02, Insulin: Yes REVIEW OF SYSTEMS Review of Systems Constitutional: Negative. Respiratory: Negative. Cardiovascular: Negative. Gastrointestinal: Negative. Genitourinary: Negative. Skin: Negative. Neurological: Negative. Psychiatric/Behavioral: Negative. HISTORIES PAST MEDICAL HISTORY Diagnosis Date - Allergic rhinitis - Asthma - Chronic midline low back pain with bilateral sciatica 12/10/2015 Dr. Bell Ferguson, [employer] prescribed hydrocodone. - Chronic migraine without aura without status migrainosus, not intractable 07/30/2015 - Esophageal reflux - GERD (gastroesophageal reflux disease) - Hyperlipidemia - Insomnia - Intertrigo 07/30/2015 - Mixed hyperlipidemia 12/29/2014 - Obstructive sleep apnea (adult) (pediatric) polysomnogram 10/15/11, not on CPAP - Type 2 diabetes mellitus with diabetic neuropathy, without long-term current use of insulin ([facility]) 01/01/2016 FAMILY HISTORY Problem Relation Age of Onset - Diabetes Mother - Hypertension Mother diabetes, elevated cholesterol - Diabetes Sister x 5 and hypertension SOCIAL HISTORY Social History Tobacco Use - Smoking status: Current Every Day Smoker Packs/day: 1.00 Years: 35.00 Pack years: 35.00 Types: Cigarettes - Smokeless tobacco: Never Used - Tobacco comment: 1 pack per week Vaping Use - Vaping Use: Never used Substance Use Topics - Alcohol use: No - Drug use: No PHYSICAL EXAMINATION General appearance: Well appearing, alert, in no acute distress and well-hydrated, well nourished Skin: Skin color, texture, turgor normal, no suspicious rashes or lesions Respiratory:+ effort Cardiovascular: Not examined GI: Normal abdominal exam, Abdomen soft, non-tender. No masses, organomegaly Musculoskeletal: Negative Neuro: Negative Genitourinary: not examined Impression: (N40.1, N13.8) BPH with obstruction/lower urinary tract symptoms (primary encounter diagnosis) Plan: Cont flomax Reduce caffeine Cysto tomorrow Fareed Lindsey Jr, MD 03/13/2021 [facility] 02-20-2021 Note HNO ID: [id number] Author: Kevyn Artis PA-C Service: ? Author Type: Physician Ice Cream Mixer Type: Progress Notes Filed: 03/13/2021 9:19 PM Note Text: PATIENT INFO: Thomas Harrison 60 year old ( ) REFERRING PROVIDER: Geoff Haskins PCP: Eligio Glez, February 20, 2021 HPI: Thomas Harrison 60 year old male is here today for urinary urgency and frequency with PVR of 272 ml even on Flomax Discussed possible therapies and he would like to discuss possible Prostate procedures with Urologist Will get Cystoscopy and Urodynamics with [facility] urologist LUTS: Obstructive - weak stream: yes, hesitancy: no, Intermittency: no, Double voiding no post-void dribbling: yes incomplete emptying: yes Irritative - NTF yes Urgency yes Frequency yes Dysuria yes Incontinence no Gross Hematuria no Microscopic Hematuria ( 2 of 3 UA w/Micro showed 3-5 RBC's) no Other symptoms: ED - no LABS: No results found for: TESTOST No results found for: TESTFREE PSA Screening (ng/mL) Date Value 05/16/2020 1.64 03/31/2015 0.64 Hematocrit (%) Date Value 07/19/2020 43.7 05/16/2020 44.3 11/09/2015 43.3 MEDICATIONS: allopurinol (ZYLOPRIM) 100 mg tablet Take 100 mg by mouth twice daily with meals. montelukast (SINGULAIR) 10 mg tablet Take 10 mg by mouth once daily. tamsulosin (FLOMAX) 0.4 mg Take 0.4 mg by mouth once daily. oxyCODONE ir (OXYIR) 5 mg capsule Take 5 mg by mouth. 5 tablets every day traZODone (DESYREL) 50 mg tablet TAKE 1 TABLET BY MOUTH EVERY DAY AT BEDTIME atenolol (TENORMIN) 50 mg tablet Take 1 tablet by mouth twice daily. metFORMIN ER (GLUCOPHAGE XR) 500 mg 24 hr tablet Take 2 tablets by mouth twice daily with meals. glimepiride (AMARYL) 4 mg tablet Take 1 tablet by mouth twice daily with meals. sitaGLIPtin (JANUVIA) 100 mg tablet Take 1 tablet by mouth once daily. famotidine (PEPCID) 40 mg tablet Take 1 tablet by mouth once daily. fluticasone (FLONASE) 50 mcg/actuation nasal spray Use 2 Sprays in each nostril once daily. Rinse mouth after use. clotrimazole-betamethasone (LOTRISONE) lotion Apply 1 application to affected area twice daily. VENTOLIN HFA 90 mcg/actuation inhaler AWAITING PRIOR AUTH...INHALE 2 PUFFS INSTRUCTED FOUR TIMES DAILY. gabapentin (NEURONTIN) 300 mg capsule Take 3 capsules by mouth daily at bedtime. fluticasone (FLOVENT HFA) 110 mcg/actuation inhaler Inhale 2 Puffs as instructed twice daily. Flurbiprofen 100 mg tablet Take 1 tablet by mouth twice daily. gemfibrozil (LOPID) 600 mg tablet Take 1 tablet by mouth twice daily. acetaminophen 325 mg-caffeine 40 mg-butalbital 50 mg (FIORICET) per tablet Take 1 tablet by mouth twice daily as needed for Pain (headache). polyethylene glycol 3350 (MIRALAX, GLYCOLAX) 17 gram/dose powder Take 17 g by mouth once daily. blood sugar diagnostic (ONETOUCH ULTRA TEST) test strip Test blood sugar(s) 2 times daily. Dx: 250.02. Insulin: Yes insulin needles, DISPOSABLE, (PEN NEEDLE) 31 X 5/16 ndle Use one needle per dose. 1 per day. Lancets (Move LootTOUCH ULTRASOFT LANCETS) lancets Test blood sugar(s) 2 times daily. Dx: 250.02, Insulin: Yes PAST MEDICAL HISTORY: PAST MEDICAL HISTORY Diagnosis Date - Allergic rhinitis - Asthma - Chronic midline low back pain with bilateral sciatica 12/10/2015 Dr. Bell Ferguson, [employer] Hel[employer] prescribed hydrocodone. - Chronic migraine without aura without status migrainosus, not intractable 07/30/2015 - Esophageal reflux - GERD (gastroesophageal reflux disease) - Hyperlipidemia - Insomnia - Intertrigo 07/30/2015 - Mixed hyperlipidemia 12/29/2014 - Obstructive sleep apnea (adult) (pediatric) polysomnogram 10/15/11, not on CPAP - Type 2 diabetes mellitus with diabetic neuropathy, without long-term current use of insulin ([facility]) 01/01/2016 PAST SURGICAL HISTORY: PAST SURGICAL HISTORY Procedure Laterality Date - PAST SURGICAL HISTORY OF 1999 2003 lumbar discectomy and lamenectomy - PAST SURGICAL HISTORY OF 08/2016 lumbar fusion - [facility] N/CARPAL TUNNEL SURG Carpal tunnel decomp FAMILY HISTORY: FAMILY HISTORY Problem Relation Age of Onset - Diabetes Mother - Hypertension Mother diabetes, elevated cholesterol - Diabetes Sister x 5 and hypertension SOCIAL HISTORY: Social Connections: Not on file REVIEW OF SYSTEMS: GENERAL: No fever, chills, weight loss, or fatigue. ENMT: Negative CARDIOVASCULAR:NO CHEST PAIN, PALPITATIONS, ANKLE EDEMA RESPIRATORY: No chronic cough, wheezing, dyspnea, hemoptysis. GENITOURINARY: SEE HPI MUSCULOSKELETAL:NO CHRONIC BACK PAIN, ARTHRITIS, CHRONIC NECK PAIN SKIN: NO VARICOSE VEINS, RASH, ABNORMAL ITCHING HEME/LYMPH/IMMUNE:Negative for prolonged bleeding, bruising easily or swollen nodes NEUROLOGICAL: NO HEADACHES, NUMBNESS, SEIZURES, STROKE DIABETES: Yes, All other systems reviewed and are negative PHYSICAL EXAMINATION: Blood pressure 152/80, pulse (more content not included)... [facility] 02-08-2021 Note HNO ID: [id number] Author: Geoff Haskins MD Service: ? Author Type: Physician Type: Progress Notes Filed: 02/08/2021 6:48 PM Note Text: HISTORY AND PHYSICAL Thomas Harrison 1960 REFERRING PHYSICIAN: Self CHIEF COMPLAINT: Consult (possible right inguinal hernia) HPI: Thomas is a 60 year old male with a complaint of comfort without a bulge in his right inguinal region. The patient notes discomfort in this area with straining and moving. The symptoms have maintained, over the past few weeks. The patient notes no symptoms of bowel obstruction and denies nausea or vomiting. Patient also notes difficulty with initiating urine stream. He states he has been on Flomax for some time initially this was working but now he notes more and more difficulties initiating and maintaining the urine stream. The patient is being seen by me today at the request of Dr. Eligio Glez DO for my opinion and advice regarding right inguinal pain.. PAST MEDICAL HISTORY Diagnosis Date - Allergic rhinitis - Asthma - Chronic midline low back pain with bilateral sciatica 12/10/2015 Dr. Bell Ferguson, [employer] prescribed hydrocodone. - Chronic migraine without aura without status migrainosus, not intractable 07/30/2015 - Esophageal reflux - GERD (gastroesophageal reflux disease) - Hyperlipidemia - Insomnia - Intertrigo 07/30/2015 - Mixed hyperlipidemia 12/29/2014 - Obstructive sleep apnea (adult) (pediatric) polysomnogram 10/15/11, not on CPAP - Type 2 diabetes mellitus with diabetic neuropathy, without long-term current use of insulin ([facility]) 01/01/2016 PAST SURGICAL HISTORY Procedure Laterality Date - PAST SURGICAL HISTORY OF 1999 2003 lumbar discectomy and lamenectomy - PAST SURGICAL HISTORY OF 08/2016 lumbar fusion - [facility] N/CARPAL TUNNEL SURG Carpal tunnel decomp Current Outpatient Medications Medication Sig - allopurinol (ZYLOPRIM) 100 mg tablet Take 100 mg by mouth twice daily with meals. - montelukast (SINGULAIR) 10 mg tablet Take 10 mg by mouth once daily. - tamsulosin (FLOMAX) 0.4 mg Take 0.4 mg by mouth once daily. - oxyCODONE ir (OXYIR) 5 mg capsule Take 5 mg by mouth. 5 tablets every day - atenolol (TENORMIN) 50 mg tablet Take 1 tablet by mouth twice daily. - metFORMIN ER (GLUCOPHAGE XR) 500 mg 24 hr tablet Take 2 tablets by mouth twice daily with meals. - glimepiride (AMARYL) 4 mg tablet Take 1 tablet by mouth twice daily with meals. - famotidine (PEPCID) 40 mg tablet Take 1 tablet by mouth once daily. - VENTOLIN HFA 90 mcg/actuation inhaler AWAITING PRIOR AUTH...INHALE 2 PUFFS INSTRUCTED FOUR TIMES DAILY. - gabapentin (NEURONTIN) 300 mg capsule Take 3 capsules by mouth daily at bedtime. - fluticasone (FLOVENT HFA) 110 mcg/actuation inhaler Inhale 2 Puffs as instructed twice daily. - Flurbiprofen 100 mg tablet Take 1 tablet by mouth twice daily. - gemfibrozil (LOPID) 600 mg tablet Take 1 tablet by mouth twice daily. - blood sugar diagnostic (ONETOUCH ULTRA TEST) test strip Test blood sugar(s) 2 times daily. Dx: 250.02. Insulin: Yes - insulin needles, DISPOSABLE, (PEN NEEDLE) 31 X 5/16 ndle Use one needle per dose. 1 per day. - Lancets (Move LootTOUCH ULTRASOFT LANCETS) lancets Test blood sugar(s) 2 times daily. Dx: 250.02, Insulin: Yes - traZODone (DESYREL) 50 mg tablet TAKE 1 TABLET BY MOUTH EVERY DAY AT BEDTIME (Patient not taking: Reported on 02/08/2021) - sitaGLIPtin (JANUVIA) 100 mg tablet Take 1 tablet by mouth once daily. (Patient not taking: Reported on 02/08/2021 ) - fluticasone (FLONASE) 50 mcg/actuation nasal spray Use 2 Sprays in each nostril once daily. Rinse mouth after use. (Patient not taking: Reported on 02/08/2021 ) - clotrimazole-betamethasone (LOTRISONE) lotion Apply 1 application to affected area twice daily. (Patient not taking: Reported on 02/08/2021 ) - acetaminophen 325 mg-caffeine 40 mg-butalbital 50 mg (FIORICET) per tablet Take 1 tablet by mouth twice daily as needed for Pain (headache). (Patient not taking: Reported on 02/08/2021) - polyethylene glycol 3350 (MIRALAX, GLYCOLAX) 17 gram/dose powder Take 17 g by mouth once daily. (Patient not taking: Reported on 02/08/2021 ) No current facility-administered medications for this visit. ALLERGIES: Latex, Naproxen, Pravastatin, Sulindac, Vicodin [Hydrocodone-Acetaminophen], and Lipitor [Atorvastatin Calcium] PERSONAL HISTORY: Social History Tobacco Use - Smoking status: Current Every Day Smoker Packs/day: 1.00 Years: 35.00 Pack years: 35.00 Types: Cigarettes - Smokeless tobacco: Never Used - Tobacco comment: 1 pack per week Vaping Use - Vaping Use: Never used Substance Use Topics - Alcohol use: No - Drug use: No FAMILY HISTORY: FAMILY HISTORY Problem Relation Age of Onset - Diabetes Mother - Hypertension Mother diabetes, elevated cholesterol - Diabetes Sister x 5 and hypertension REVIEW OF SYMPTOMS: The rev (more content not included)... [facility] documented as of this encounter (statuses as of 08/27/2021) [facility] History of Past illness Narrative* Problem Noted Date Resolved Date Midline low back pain with sciatica 12/29/2014 12/10/2015 Type 2 diabetes mellitus with diabetic neuropath y 12/29/2014 01/01/2016 Diabetes mellitus with neuropathy 11/09/2012 12/29/2014 Hypertension 03/29/2010 12/29/2014 NEVUS HAND//BENIGN CRISTOBAL SKIN ARM 05/27/2008 05/27/2016 SKIN ANOMALY NEC (Left hand) 04/09/2005 Open wound of knee, leg (exc ept thigh), and ankle, without mention of complication 04/08/2005 01/01/2016 CHEST PAIN ANTERIOR CHEST WALL 10/26/2004 0 05/06/2016 SCIATICA left leg 10/26/2004 01/01/2016 Lumbago 10/26/2004 12/29/2014 PURE HYPERCHOLESTEROLEM 10/26/2004 06/19/19 15 DIABETES MELLITUS TYPE II-UNCOMPL 10/26/2004 06/18/2014 documented as of this encounter (statuses as of 03/14/2022) [facility] Appointment Date:12/05/2021 10:15:00 AM Scheduled Provider:KIMBERLY MANE Location:[facility] PM Appointment Type:PM [facility] Evaluation + Plan note Future Appointments Appointment Date:01/02/2022 10:15:00 AM Scheduled Provider:KIMBERLY MANE Location:[facility] PM Appointment Type:PM OV [facility] Evaluation + Plan note Future Appointments Appointment Date:01/30/2022 10:15:00 AM Scheduled Provider:KIMBERLY MANE Location:[facility] PM Appointment Type:PM OV [facility] Evaluation + Plan note Future Appointments Appointment Date:03/06/2022 10:30:00 AM Scheduled Provider:KIMBERLY MANE Location:[facility] PM Appointment Type:PM OV [facility] Evaluation note* Diagnosis Pain in right hip documented in this encounter [facility] Diagnosis Chronic pain syndrome- Primary documented in this encounter [facility]* Diagnosis Encounter for screening for malignant neoplasm of respiratory organs Tobacco use Chronic pain syndrome documented in this encounter [facility]* Diagnosis Chronic pain disorder- Primary Chronic pain syndrome Chronic pain disorder Chronic pain syndrome documented in this encounter [facility]* Diagnosis Chronic pain disorder- Primary Chronic pain syndrome documented in this encounter [facility]* Diagnosis Chronic pain disorder Chronic pain syndrome documented in this encounter [facility]* Diagnosis Chronic pain disorder Chronic pain syndrome documented in this encounter [facility]* Diagnosis Encounter for screening for malignant neoplasm of respiratory organs- Primary Tobacco use Encounter for screening for malignant neoplasm of respiratory organs Tobacco use [facility] N[facility] No data available for this section [facility] Discharge instructions No data available for this section [facility] Progress note No data available for this section [facility] Summary Purpose Family History No Family History Records FoundNo Family History Records FoundNo Family History Records FoundNo Family History Records FoundNo Family History Records FoundNo Family History Records FoundNo Family History Records FoundNo Family History Records Found Advance Directives Documents on File Type Date Recorded Patient Special Assemblies Supervisor Expl anation Advance Directives and Living Will Power of Talent Advisor Latest Code Status on File Code Status Date Activated Date Inactivated Comments Full Code 11/29/2022 4:29 PM 11/30/2022 1:56 PM Latest Code Status on File Code Status Date Activated Date Inactivated Comments Full Code 11/29/2022 4:29 PM 11/30/2022 1:56 PM Reason for Referral Specialty Diagnoses / Procedures Referred By Contac t Referred To Contact Radiology Diagnoses Encounter for screening for malignant neoplasm of respiratory organs Tobacco use Procedures CT lung screening low dose Eligio Glez [address] [place] [address] Referral ID Status Reason Start Date Expiration Date Visits Re quested Visits Authorized [id number] Closed 11/11/2022 12/26/2022 1 1 Additional Source Comments (unrecognized sect ion and content) No Status Records FoundNo Status Records FoundNo Status Records FoundNo Status Records FoundNo Status Records FoundNo Status Records FoundNo Status Records FoundNo Status Records Found INFORMATION SOURCE (unrecogn ized section and content) DATE CREATED AUTHOR AUTHOR'S ORGANIZ ATION 09/23/2019 [facility] DATE CREATED AUTHOR AUTHOR'S ORGANIZ ATION 03/15/2021 [facility] DATE CREATED AUTHOR AUTHOR'S ORGANIZ ATION 04/11/2021 [facility] DATE CREATED AUTHOR AUTHOR'S ORGANIZ ATION 05/22/2021 [facility] DATE CREATED AUTHOR AUTHOR'S ORGANIZ ATION 10/09/2021 [facility] DATE CREATED AUTHOR AUTHOR'S ORGANIZ ATION 05/10/2022 [facility] ([place] DATE CREATED AUTHOR AUTHOR'S ORGANIZ ATION 12/13/2022 [facility] Source Comments (unrecognize d section and content) In the event this informatio n is protected by the Federal Confidentiality of Alcohol and Drug Abuse Patient Records regulations: The Federal rules restrict any use of the information to criminally investigate or prosecute any alcohol or drug abuse patient.[facility] the event this information is protected by the Federal Confidentiality of Alcohol and Drug Abuse Patient Records regulations: The Federal rules restrict any use of the information to criminally investigate or prosecute any alcohol or drug abuse patient.[facility] Reason for Visit (unrecogniz ed section and content) Reason Comments New Patient Postlaminectomy synd lisa Specialty Diagnoses / Procedures Referred By Contac t Referred To Contact Neurosurgery Diagnoses Postlaminectomy syndrome, not elsewhere classified Spinal stenosis, lumbar region with neurogenic claudication Procedures [place] OFFICE/OUTPATIENT NEW MODERATE MDM 45-59 MINUTES Fareed Hager MD [address] [address] [place] [address] [place] [phone] Referral ID Status Reason Start Date Expiration Date Visits Re quested Visits Authorized [id number] Closed 10/23/2022 10/24/2023 1 1 Specialty Diagnoses / Procedures Referred By Contac t Referred To Contact Radiology Diagnoses Encounter for screening for malignant neoplasm of respiratory organs Tobacco use Procedures CT lung screening low dose Eligio Glez [address] [place] [address] Referral ID Status Reason Start Date Expiration Date V isits Requested Visits Authorized [id number] Pending Review 11/05/2022 05/04/2023 1 1 Referral ID Status Reason Start Date Expiration Date Visits Re quested Visits Authorized [id number] Closed 11/11/2022 12/26/2022 1 1 Specialty Diagnoses / Procedures Referred By Jorge t Referred To Contact Diagnoses Chronic pain syndrome Chronic pain syndrome [G89.4] Procedures [place] FELIZ IMPLTJ NSTIM ELTRDS PLATE/PADDLE EDRL [place] INSJ/RPLCMT SPI NPGR DIR/INDUXIVE COUPLING SPINAL CORD STIMULATOR PLACEMENT INSERTION OR REPLACEMENT OF NEUROSTIMULATOR PULSE GENERATOR Jesus Felder MD [address] [email or web address] [address] [facility] [address] [place] [address] Referral ID Status Reason Start Date Expiration Date Visits Re quested Visits Authorized [id number] 1 1 Reason Comments Post-op Two weeks post op Care Teams (unrecognized sec tion and content) Partner Cco Relationship Specialty Start Date End Date Eligio Glez PCP - General Family Medicine 01/18/18 Partner Cco Relationship Specialty Start Date End Date lEigio Glez DO [address] [place], [place] [phone] PCP - General Family Medicine 02/05/21 Partner Cco Relationship Specialty Start Date End Date Eligio Glez [address] [place] [address] PCP - General 01/18/18 Partner Cco Relationship Specialty Start Date End Date Eligio Glez [address] [place] [address] PCP - General 01/18/18 Partner Cco Relationship Specialty Start Date End Date Eligio Glez [address] [place] [address] PCP - General 01/18/18 Partner Cco Relationship Specialty Start Date End Date Eligio Glez [address] [place] [address] PCP - General 01/18/18 Partner Cco Relationship Specialty Start Date End Date Eligio Glez [address] [place] [address] PCP - General 01/18/18 Partner Cco Relationship Specialty Start Date End Date Eligio Glez [address] [place] [address] PCP - General 01/18/18 Partner Cco Relationship Specialty Start Date End Date Eligio Glez [address] [place] [address] PCP - General 01/18/18 Partner Cco Relationship Specialty Start Date End Date Eligio Glez [address] [place] [address] PCP - General 01/18/18 Partner Cco Relationship Specialty Start Date End Date Eligio Glez [address] [place] [address] PCP - General 01/18/18 Care Team (unrecognized sect ion and content) Care Team Personnel Name: ELIGIO GLEZ DO Member Role: Primary Care Physician Address: Address: [address] Care Team Related Persons Name: ALEX HARRISON Care Team Personnel Name: ELIGIO GLEZ DO Member Role: Primary Care Physician Address: Address: [facility] [address] Care Team Related Persons Name: ALEX HARRISON Care Team Personnel Name: ELIGIO GLEZ DO Member Role: Primary Care Physician Address: Address: [facility] [address] Care Team Related Persons Name: ALEX HARRISON Care Team Personnel Name: ELIGIO GLEZ DO Member Role: Primary Care Physician Address: Address: [facility] [address] Care Team Related Persons Name: ALEX HARRISON Care Team Personnel Name: ELIGIO GLEZ DO Member Role: Primary Care Physician Address: Address: [facility] [address] Care Team Related Persons Name: ALEX HARRISON Scheduled Active and Recently Administ ered Medications (unrecognized section and content) Continuous Medication Order 11/28/2022 11/29/2022 11/30/2022 lactated Ringer's (LR) infusion 50 mL/hr, IntraVENous, Continuous, Starting on Fri11/29/22 at 0845, Upon admission to day - please start iv if patient does not have iv access. Use 500ml NS for patients on dialysis. 0901 (New Bag - Provider: Elizabeth Olmos RN)1050 (Continued by Anesthesia - Provider: Aman Pedro CRNA)1242 (Anesthesia Volume Adjustment - Provider: Aman Pedro CRNA) sodium chloride 0.9 % infusion 75 mL/hr, IntraVENous, Continuous, Starting on Fri11/29/22 at 1630, Phase II/On Unit 1728 (New Bag - Provider: Brian Hawley RN) 0550 (New Bag - Provider: Sandrine Saenz RN)0815 (Rate/Dose Verify - Provider: Tavia Wang RN) PRN Medication Order 11/28/2022 11/29/2022 11/30/2022 albuterol 108 (90 Base) MCG/ACT inhaler 2 puff 2 puff, Inhalation, Every 4 hours PRN, shortness of breath, wheezing, Starting on Fri11/29/22 at 1629, Phase II/On Unit bacitracin-polymyxin b (Polysporin) ointment (CANCELED) As needed, Starting on Fri11/29/22 at 1232, Intraprocedure 1232 (Given - Provider: Jesus Felder MD) bisacodyl (Dulcolax) EC tablet 5 mg 5 mg, Oral, Daily PRN, constipation, Starting on Fri11/29/22 at 1629, Phase II/On Unit, 1st line for treatment of constipation - give scheduled if no bowel movement in past 24 hours. Do not crush, chew, or split. bisacodyl (Dulcolax) suppository 10 mg 10 mg, Rectal, Daily PRN, constipation, Starting on Fri11/29/22 at 1629, Phase II/On Unit, 2nd line for treatment of constipation - give scheduled (in addition to 1st line agent) if no bowel movement in past 48 hours dextrose 5 % infusion 100 mL/hr, IntraVENous, PRN, Blood sugar less than 70mg/dL, Starting on Fri11/29/22 at 1634, Start infusion following administration of dextrose 50% or glucagon. dextrose 50 % solution 12.5 g 12.5 g, IntraVENous, PRN, low blood sugar, Blood glucose less than 70 mg/dL and patient NOT ALERT or NPO., Starting on Fri11/29/22 at 1634, If patient does not respond within 5 minutes, repeat dose x1. Start D5W at 100 mL/hour until ordering provider can be reached. Repeat blood glucose in 15 minutes. If blood glucose is less than 70 mg/dL, repeat treatment and recheck blood glucose in 15 minutes x2. If using Glucostabilizer, dose as instructed per system. famotidine (Pepcid) tablet 20 mg 20 mg, Oral, Daily PRN, indigestion, Starting on Fri11/29/22 at 1629, Phase II/On Unit glucagon (human recombinant) injection 1 mg 1 mg, IntraMUSCular, PRN, low blood sugar, Blood glucose less than 70 mg/dL and patient NOT ALERT or NPO and does not have IV access., Starting on Fri11/29/22 at 1634, After administration, attempt intravenous access and start D5W at 100 mL/hr. Repeat blood glucose in 15 minutes x2 and notify provider. glucose oral gel 15 g 15 g, Oral, As needed, low blood sugar, Starting on Fri11/29/22 at 1634, If blood glucose less than 50 mg/dL and patient ALERT and NOT NPO, give 2 tubes glucose gel. If blood glucose less than 70 mg/dL and patient ALERT and NOT NPO, give 1 tube glucose gel. Repeat blood glucose in 15 minutes. If blood glucose is less than 70 mg/dL, repeat treatment and recheck blood glucose in 15 minutes x2 and notify provider. HYDROmorphone (Dilaudid) injection 0.5 mg (CANCELED) 0.5 mg, IntraVENous, Every 5 min PRN, severe pain (7-10), Starting on Fri11/29/22 at 1250, For 4 doses, Recovery (only), Phase I and Phase II- Initial therapy for severe pain (7-10). Restricted to a 90 minute time frame starting when the patient can verbally state their pain score. If after 2 doses the pain score does not decrease by more than one point, then call the provider. If oral meds are utilized, do not return to initial therapy medications. 1254 (Given - Provider: Davi Dacosta, SANTIAGO)1311 (Given - Provider: Davi Dacosta RN) LORazepam (Ativan) injection 0.5 mg (COMPLETED) 0.5 mg, IntraVENous, Once PRN, for anxiety or muscle spasm., Starting on Fri11/29/22 at 1250, For 1 dose, Recovery (only), For IV doses dilute dose with 1ml NS. 1322 (Given - Provider: Davi Dacosta, SANTIAGO) morphine injection 2 mg(Linked Group 1) 2 mg, IntraVENous, Every 2 hour PRN, moderate pain (4-6), Starting on Fri11/29/22 at 1629, Phase II/On Unit, If oral and IV narcotics ordered, use oral first and only use IV if oral is ineffective or cannot take oral. Do Not give oral and IV within 1 hour of each other unless specifically ordered. morphine injection 4 mg(Linked Group 1) 4 mg, IntraVENous, Every 2 hour PRN, severe pain (7-10), Starting on Fri11/29/22 at 1629, Phase II/On Unit, If oral and IV narcotics ordered, use oral first and only use IV if oral is ineffective or cannot take oral. Do Not give oral and IV within 1 hour of each other unless specifically ordered. ondansetron (Zofran) injection 4 mg(Linked Group 2) 4 mg, IntraVENous, Every 6 hours PRN, nausea, vomiting, Starting on Fri11/29/22 at 1629, Phase II/On Unit, 1st Line. Give IV if patient is unable to take orally. If inadequate response within 60 minutes, proceed to next-line agent or contact provider if no further options ordered. ondansetron ODT (Zofran-ODT) disintegrating tablet 4 mg(Linked Group 2) 4 mg, Oral, Every 8 hours PRN, nausea, vomiting, Starting on Fri11/29/22 at 1629, Phase II/On Unit, 1st Line. If inadequate response within 60 minutes, proceed to next-line agent or contact provider if no further options ordered. Patient should allow tablet to dissolve on tongue. Do not remove from blister pack until just before administering. oxyCODONE-acetaminophen (Percocet) 5-325 MG per tablet 1 tablet(Linked Group 3) 1 tablet, Oral, Every 4 hours PRN, moderate pain (4-6), Starting on Fri11/29/22 at 1629, Phase II/On Unit, Maximum dose of acetaminophen is 4000 mg from all sources in 24 hours. 0812 (See Alternativ e - Provider: Tavia Wang RN) oxyCODONE-acetaminophen (Percocet) 5-325 MG per tablet 2 tablet(Linked Group 3) 2 tablet, Oral, Every 4 hours PRN, severe pain (7-10), Starting on Fri11/29/22 at 1629, Phase II/On Unit, Maximum dose of acetaminophen is 4000 mg from all sources in 24 hours. 0812 (Given - Provid er: Tavia Wang RN) sodium chloride 0.9 % infusion 5-250 mL/hr, IntraVENous, PRN, if patient receiving piggyback infusions and maintenance fluids are not ordered OR KVO fluids to protect IV site / prevent frequent line interruptions/ long duration, Starting on Fri11/29/22 at 1629, Phase II/On Unit, For piggyback infusion, administer at same rate as piggyback for a total of 25 mL. Enter 25 mL into dose field and piggyback rate into rate field of order. If piggyback is infusing at a rate less than 100 mL/hr, enter 25 mL into dose field and 100 mL/hr into rate field of order. For KVO fluids, enter rate of 20 mL/hr or less into rate field of order. sodium chloride 0.9 % irrigation solution (CANCELED) As needed, Starting on Fri11/29/22 at 1120, Intraprocedure 1120 (Given - Provider: Jesus Felder MD) sodium chloride 0.9% (NS) flush 10 mL 10 mL, IntraVENous, PRN, line care, Starting on Fri11/29/22 at 1629, Phase II/On Unit, After every IV line use SURGIFLO hemostatic matrix with thrombin kit (CANCELED) As needed, Starting on Fri11/29/22 at 1120, Intraprocedure 1120 (Given - Provider: Jesus Felder MD) tiZANidine (Zanaflex) tablet 4 mg 4 mg, Oral, Every 8 hours PRN, muscle spasms, Starting on Fri11/29/22 at 1629, Phase II/On Unit Linked Groups Order Group 1: morphine injection 2 mgJump to med 2 mg, IntraVENous, Every 2 hour PRN, moderate pain (4-6), Starting on Fri11/29/22 at 1629, Phase II/On Unit, If oral and IV narcotics ordered, use oral first and only use IV if oral is ineffective or cannot take oral. Do Not give oral and IV within 1 hour of each other unless specifically ordered. Or morphine injection 4 mgJump to med 4 mg, IntraVENous, Every 2 hour PRN, severe pain (7-10), Starting on Fri11/29/22 at 1629, Phase II/On Unit, If oral and IV narcotics ordered, use oral first and only use IV if oral is ineffective or cannot take oral. Do Not give oral and IV within 1 hour of each other unless specifically ordered. Group 2: ondansetron ODT (Zofran-ODT) disintegrating tablet 4 mgJump to med 4 mg, Oral, Every 8 hours PRN, nausea, vomiting, Starting on Fri11/29/22 at 1629, Phase II/On Unit, 1st Line. If inadequate response within 60 minutes, proceed to next-line agent or contact provider if no further options ordered. Patient should allow tablet to dissolve on tongue. Do not remove from blister pack until just before administering. Or ondansetron (Zofran) injection 4 mgJump to med 4 mg, IntraVENous, Every 6 hours PRN, nausea, vomiting, Starting on Fri11/29/22 at 1629, Phase II/On Unit, 1st Line. Give IV if patient is unable to take orally. If inadequate response within 60 minutes, proceed to next-line agent or contact provider if no further options ordered. Group 3: oxyCODONE-acetaminophen (Percocet) 5-325 MG per tablet 1 tabletJump to med 1 tablet, Oral, Every 4 hours PRN, moderate pain (4-6), Starting on Fri11/29/22 at 1629, Phase II/On Unit, Maximum dose of acetaminophen is 4000 mg from all sources in 24 hours. Or oxyCODONE-acetaminophen (Percocet) 5-325 MG per tablet 2 tabletJump to med 2 tablet, Oral, Every 4 hours PRN, severe pain (7-10), Starting on Fri11/29/22 at 1629, Phase II/On Unit, Maximum dose of acetaminophen is 4000 mg from all sources in 24 hours. FOR RECORDS PERTAINING TO PATIENTS WHO ARE OR HAVE BEEN ENROLLED IN A CHEMICAL DEPENDENCY/SUBSTANCEABUSE PROGRAM, SOME INFORMATION MAY BE OMITTED. This clinical summary was aggregated from multiple sources. Caution should be exercised in using it in the provision of clinical care. This summary normalizes information from multiple sources, and as a consequence, information in this document may materially change the coding, format and clinical context of patient data. In addition, data may be omitted in some cases. CLINICAL DECISIONS SHOULD BE BASED ON THE PRIMARY CLINICAL RECORDS. [employer] [facility]. provides no warranty or guarantee of the accuracy or completeness of information in this document.
[2023-03-19 13:32] LABS: Amphetamine Urine VISTA NEGATIVE (<1000 ng/mL); Barbiturate Urine VISTA NEGATIVE (< 200 ng/mL); Benzodiazepine Urine VISTA NEGATIVE (< 200 ng/mL); Cocaine Urine VISTA NEGATIVE (< 300 ng/mL); Ecstacy Urine VISTA NEGATIVE (< 500 ng/mL); Methadone Urine VISTA NEGATIVE (< 300 ng/mL); PCP Urine VISTA NEGATIVE (< 25 ng/mL); THC Urine VISTA NEGATIVE (< 50 ng/mL); Vista UDS pH Range 5
== END | disposition home or self-care (01) ==
LOC: LAB 12:32
PROVIDERS: PCP Family Medicine; Referring Provider Anesthesiology; Visit Provider Anesthesiology
DX: F11.10 Opioid abuse, uncomplicated (principal)
CPT/HCPCS: 80307

== ENCOUNTER → 2023-05-23 | Outpatient (CLI) | payer OTHER, MEDICAID, SELFPAY ==
[2023-05-23 12:57] LABS: Amphetamine Urine VISTA NEGATIVE (<1000 ng/mL); Barbiturate Urine VISTA NEGATIVE (< 200 ng/mL); Benzodiazepine Urine VISTA NEGATIVE (< 200 ng/mL); Cocaine Urine VISTA NEGATIVE (< 300 ng/mL); Ecstacy Urine VISTA NEGATIVE (< 500 ng/mL); Methadone Urine VISTA NEGATIVE (< 300 ng/mL); PCP Urine VISTA NEGATIVE (< 25 ng/mL); THC Urine VISTA NEGATIVE (< 50 ng/mL); Vista UDS pH Range 6
== END | disposition home or self-care (01) ==
LOC: LABSPEC 11:27 → LAB 11:29
PROVIDERS: PCP Family Medicine; Referring Provider Anesthesiology; Visit Provider Anesthesiology
DX: F11.20 Opioid dependence, uncomplicated (principal)
CPT/HCPCS: 80307

== ENCOUNTER → 2023-11-21 | Outpatient (CLI) | payer OTHER, MEDICAID, SELFPAY ==
[2023-11-21 12:14] LABS: Absolute Neutrophil Count 5.3 X10^3/uL (2.0-7.7); Basophil# 0.06 X10^3/uL; Basophil% 0.7 % (0-1); Eosinophil# 0.22 X10^3/uL; Eosinophils% 2.6 % (0-5); Hematocrit 41.9 % (40-54); Hemoglobin 14.1 g/dL (13.0-16.5); Lymphocyte % 27.8 % (19-41); Mean Corp Hgb Conc 33.7 g/dL (32-36); Mean Corpuscular Hgb 32.4 pg (27.0-32.0); Mean Corpuscular Volume 96.3 fL (80-94); Mean Platelet Vol. 10.2 fl (6.2-12.0); Monocyte# 0.52 X10^3/uL; NRBC Flagged by Analyzer 0 % (0-5); Neutrophil # 5.31 X10^3/uL (2.7-7.7); Neutrophil % 61.6 % (47-70); Platelet Count 242 K/mm3 (150-450); RBC Distribution Width CV 14.6 % (11.6-14.6); RBC Distribution Width SD 50.7 fl (35.1-43.9); Red Blood Count 4.35 M/mm3 (4.6-6.2); White Blood Count 8.6 K/mm3 (4.4-11.0)
[2023-11-21 12:31] LABS: ALB/GLOB Ratio 0.9 RATIO (0.9-2.4); AST(SGOT) 17 U/L (15-37); Alanine Aminotransfer ALT/SGPT 27 U/L (16-61); Albumin, Serum 3.7 g/dL (3.2-5.0); Alkaline Phosphatase 71 U/L (45-117); Anion Gap 9 (5-15); BUN 18 mg/dL (7-18); BUN/Creat Ratio 16.4 RATIO (10-20); Calcium,Total 9.7 mg/dL (8.5-10.1); Chloride 103 mmol/L (98-107); Cholesterol 204 mg/dL (200); EST Glomerular Filtration Rate 72 mL/min (>60); Est Glom Filt Rate - Afr Amer 88 mL/min (>60); Globulin 3.9 g/dL (2.2-4.2); Glucose 223 mg/dL (74-106); High Density Lipoprotein 27 mg/dL; PSA,Total - Annual Screen 0.98 ng/mL (0.00-4.00); Potassium 4.3 mmol/L (3.5-5.1); Protein, Total 7.6 g/dL (6.4-8.2); Sodium Level 132 mmol/L (136-145); Triglycerides 247 mg/dL; Uric Acid 7.8 mg/dL (3.5-7.2); Very Low Density Lipoprotein 49 mg/dL (5-40)
[2023-11-21 12:32] LABS: Vitamin D,25 Hydroxy 18.4 ng/mL
== END | disposition home or self-care (01) ==
LOC: BFHLAB 09:32
PROVIDERS: PCP Family Medicine; Visit Provider Family Medicine
DX: Z00.00 Encounter for general adult medical examination without abnormal findings (principal); E11.40 Type 2 diabetes mellitus with diabetic neuropathy, unspecified; M10.9 Gout, unspecified; E55.9 Vitamin D deficiency, unspecified; Z12.5 Encounter for screening for malignant neoplasm of prostate
CPT/HCPCS: 36415; 80053; 80061; 82306; 84153; 84550; 85025; G0103

== ENCOUNTER → 2023-12-12 | Outpatient (CLI) | payer OTHER, MEDICAID, SELFPAY ==
--- NOTE | 2023-12-12 13:18 | CT_ITS ---
STUDY: LOW DOSE CT LUNG CANCER SCREENING REASON FOR EXAM: Male, 62 years old. Encounter for screening for malignant neoplasm of respiratory org. Patient smoked 1 pack per day for 49 years. RADIATION DOSAGE (If Supplied By Facility): CTDIvol = ( 1.59 ) mGy, DLP = ( 50.82 ) mGycm TECHNIQUE: No contrast was administered. Low dose technique was utilized (average mAS-38 and kVp 120). 1.25 mm axial source images with a slice interval of 1.25-mm were reconstructed in lung windows. 2.5 mm axial source images with a slice interval of 2.5-mm were reconstructed in lung windows. 5.0 mm axial source images with a slice interval of 5.0-mm were reconstructed in soft tissue windows. COMPARISON: Comparison is made with prior examination dated August 24, 2020. NODULES: No suspicious nodules seen. 7 mm calcified granuloma in the posterior medial segment of the right lower lobe. This is unchanged. Emphysema: Mild degree of emphysematous changes. Endobronchial lesion: None Aorta: Mild degree of atherosclerotic plaque formation of the aortic arch. CORONARY ARTERIES: Coronary artery calcification is seen. Heart: Unremarkable Pulmonary artery: Remarkable Mediastinal nodes: Unremarkable Other chest and abdominal findings: CT/Low Dose CT Lung Screening IMPRESSION: Lung-RADS category 2 - Continue annual screening with LDCT in 12 months. IMPORTANT NOTES FOR USE: ACR Lung-RADS Version 1.1 Assessment Categories Release Date: 2018 Category: Coded 0-4 bases on nodule(s) with highest degree of suspicion. Negative screen is defined as categories 1 and 2; a positive screen is defined as categories 3 and 4. Category 3 and 4A nodules that are unchanged on interval CT should be coded as category 2, and individuals returned to screening in 12 months. Category 4X: Category 3 or 4 nodules with additional imaging findings that increase the suspicion of lung cancer, such as spiculation, GGN that doubles in size in 1 year, enlarged lymph notes, etc. Category Modifiers: S (significant finding unrelated to lung cancer) Electronically Signed: Dain Borja MD at 15:45 EDT ,
== END | disposition home or self-care (01) ==
LOC: CT 13:17
PROVIDERS: PCP Family Medicine; Referring Provider Family Medicine; Visit Provider Family Medicine
DX: Z12.2 Encounter for screening for malignant neoplasm of respiratory organs (principal); Z72.0 Tobacco use
CPT/HCPCS: 71271